=== PATIENT | female | born 1955 | race Caucasian/White ===

== ENCOUNTER 2016-09-27 10:25 | Outpatient (CLI) | payer MEDICARE, OTHER ==
[2016-09-27 11:55] LABS: #Eosinphils 0.1 thou/uL (0.0-0.7); #Lymphocytes 1.3 thou/uL (1.20-3.40); #Monocytes 0.5 thou/uL (0.11-0.59); #Neutrophils 3.7 thou/uL (1.40-6.50); %Basophils 0.7 % (0.0-1.0); %Eosinophils 2.4 % (0.0-10.0); %Lymphocytes 22.6 % (21.0-51.0); %Neutrophils 66.4 % (42.0-75.0); Hemoglobin 13.8 g/dL (12.0-16.0); Mean Corpuscular HGB CONC 31.6 g/dL (32.0-36.0); Mean Corpuscular Hemoglobin 29.4 pg (27.0-31.0); Mean Corpuscular Volume 92.8 fl (81.0-99.0); Platelet Count 227 thou/uL (130-400); RBC Distribution Width 12.8 % (11.5-14.5); White Blood Cell (WBC) Count 5.6 thou/uL (4.8-10.8)
[2016-09-27 12:03] LABS: ALT (SGPT) 7 U/L (8-55); AST (SGOT) 12 U/L (5-34); Albumin 3.6 g/dL (3.4-4.8); Alkaline Phosphatase 58 U/L (40-150); Anion Gap 15 mmol/L (10-20); BUN (Urea Nitrogen) 10 mg/dL (9.8-20.1); Bilirubin, Total 0.6 mg/dL (0.2-1.2); Calc. Creatinine Clearance 0 mL/min (70-130); Calcium 8.9 mg/dL (7.8-10.44); Carbon Dioxide 33 mmol/L (23-31); Cardiac Risk 2.4 (Less than 4.5); Chloride 102 mmol/L (98-107); Cholesterol 104 mg/dl (< 200 Desired); Estimated GFR-MDRD Greater than 90; Globulin 2.7 g/dL (2.4-3.5); Glucose 84 mg/dL (80-115); HDL Cholesterol 44 mg/dL (>60 Neg Risk); LDL Cholesterol, Calculated 48 mg/dL; Potassium 4.5 mmol/L (3.5-5.1); Protein, Total 6.3 g/dL (6.0-8.3); Sodium 145 mmol/L (136-145); Triglycerides 62 mg/dL (Less than 150)
== END 2016-09-27 10:26 | disposition home or self-care (01) ==
LOC: HPCALD 10:25
PROVIDERS: ATTEND Family Medicine
DX: E78.5 Hyperlipidemia, unspecified (principal); I10 Essential (primary) hypertension
CPT/HCPCS: 36415; 80053; 80061; 85025

== ENCOUNTER 2016-11-23 13:07 | Outpatient (CLI) | payer MEDICARE ==
--- NOTE | 2016-11-23 19:39 | RAD ---
RIGHT LEG TWO VIEWS: 11/23/16 No fracture or periosteal reaction was seen. The tibia and fibula appear intact. A small calcaneal s pur was noted. IMPRESSION: No acute finding. POS: HOME
--- NOTE | 2016-11-23 19:41 | RAD ---
RIGHT HIP TWO VIEWS: 11/23/16 No fracture, dislocation, or joint space narrowing was seen. The articular surfaces are smooth. The adjacent pubic ring appears intact. IMPRESSION: No acute finding. POS: HOME
--- NOTE | 2016-11-23 19:55 | RAD ---
RIGHT KNEE FOUR VIEWS 11/23/16 No fracture, dislocation, or joint effusion was seen. The joint space is normal in width. There is s ome bony spurring from the distal femur anteriorly that is probably of little consequence. IMPRESSION: No acute finding. POS: HOME
== END 2016-11-23 13:08 | disposition home or self-care (01) ==
LOC: BURRAD 13:07
PROVIDERS: ATTEND Family Medicine
DX: M79.604 Pain in right leg (principal)

== ENCOUNTER 2017-03-08 14:00 | Outpatient (CLI) | payer MEDICARE ==
--- NOTE | 2017-03-08 20:46 | CT ---
CT OF THE LUMBAR SPINE: Date: 03-08-17 Comparison: 08-01-12 done at [facility]. FINDINGS: The patient has significant lumbar scoliosis, convex right, to about the same degree as before. This does distort the images somewhat and lower the sensitivity of the study. The patient does have a neur al stimulator in place today. T11-12: No acute findings. T12-L1: No acute findings. L1-2: No acute findings. L2-3: Degenerative disc with a mild concentric bulge of the disc. No substantial stenosis. L3-4: Significant central canal stenosis due to a combination of a diffusely bulging disc and facet h ypertrophy. There is mild ligamentous hypertrophy. There is some disc quality material in the left ne ural foramen as before, presumed to be disc protrusion. L4-5: Generalized disc protrusion or disc bulging with probably some lateral bulging disc on the left . L5-S1: No focal disc herniation is seen. The disc is degenerated. There is grade I anterolisthesis of L4 on L5 as before. The L4-5 disc space appears to be fusion furt her in the interval. I do not see any acute vertebral fractures. IMPRESSION: 1. Severe degenerative disc disease throughout as described above. 2. Central canal stenosis as described above. 3. Evidence of disc protrusion on the left at L2-3 and L3-4. 4. Overall, the changes since 2012 seem to be relatively slight. POS: HOME
== END 2017-03-08 14:01 | disposition home or self-care (01) ==
LOC: BURCT 14:00
PROVIDERS: ATTEND Family Medicine
DX: M48.061 Spinal stenosis, lumbar region without neurogenic claudication (principal); M51.26 Other intervertebral disc displacement, lumbar region; M51.36 Other intervertebral disc degeneration, lumbar region
CPT/HCPCS: 72131

== ENCOUNTER 2018-07-06 14:59 | Emergency (ER) | payer MEDICARE ==
[2018-07-06 15:33] LABS: Hemoglobin 10.8 g/dL (12.0-16.0); Mean Corpuscular HGB CONC 29.2 g/dL (32.0-36.0); Mean Corpuscular Hemoglobin 29.9 pg (27.0-31.0); Mean Platelet Volume 7.2 fL (7.4-10.4); Platelet Count 216 thou/uL (130-400); RBC Distribution Width 13.9 % (11.5-14.5); Red Blood Cell (RBC) Count 3.61 mill/uL (4.20-5.40); White Blood Cell (WBC) Count 7.7 thou/uL (4.8-10.8)
[2018-07-06 15:43] LABS: PTT 25.1 SEC (22.9-36.1); Prothrombin Time 13.1 SEC (12.0-14.7)
[2018-07-06 15:46] LABS: Clarity Cloudy (Clear)
[2018-07-06 15:46] LABS: #Basophils 0.1 thou/uL (0.0-0.2); #Eosinphils 0.1 thou/uL (0.0-0.7); #Monocytes 0.7 thou/uL (0.11-0.59); #Neutrophils 5.8 thou/uL (1.40-6.50); %Basophils 1.1 % (0.0-1.0); %Eosinophils 1.5 % (0.0-10.0); %Lymphocytes 13.4 % (21.0-51.0); %Monocytes 8.5 % (0.0-10.0); %Neutrophils 75.5 % (42.0-75.0); Hypochromia SLIGHT = 6-15 cells (100X) (0-5/hpf); MDiff Complete? YES
[2018-07-06 15:47] LABS: Bilirubin Negative (Negative); Blood, Urine Small (Negative); Glucose, Urine (Dipstick) Negative (Negative); Leukocyte Negative (Negative); Nitrite Negative (Negative); Protein, Urine (Dipstick) Negative (Neg-Trace)
[2018-07-06 15:48] LABS: ALT (SGPT) 15 U/L (8-55); AST (SGOT) 20 U/L (5-34); Albumin 3.1 g/dL (3.4-4.8); Alkaline Phosphatase 71 U/L (40-150); Anion Gap 12 mmol/L (10-20); BUN (Urea Nitrogen) 9 mg/dL (9.8-20.1); Bilirubin, Total 0.7 mg/dL (0.2-1.2); Calc. Creatinine Clearance 0 mL/min (70-130); Calcium 8.2 mg/dL (7.8-10.44); Estimated GFR-MDRD Greater than 90; Globulin 2.8 g/dL (2.4-3.5); Glucose 74 mg/dL (80-115); Protein, Total 5.9 g/dL (6.0-8.3)
[2018-07-06 15:52] LABS: Bacteria/HPF 4+ HPF (None Seen); RBC/HPF 0-3 HPF (0-3); Squamous Epithelial 0-3 HPF (0-3); WBC/HPF 0-3 HPF (0-3)
[2018-07-06 15:54] LABS: Carbon Dioxide 43 mmol/L (23-31); Chloride 95 mmol/L (98-107); Potassium 3.4 mmol/L (3.5-5.1); Sodium 147 mmol/L (136-145)
--- NOTE | 2018-07-06 16:32 | CT ---
CT OF THE BRAIN WITHOUT CONTRAST 07/06/18 Comparison is made with the prior study of 11/20/15. The ventricles are normal in size and show no chris ft. No intracranial bleeding or extra-axial hematoma was seen. There is no sign of acute stroke, mass , or edema. An old lacunar infarct or perhaps a prominent Virchow space is seen in the right basal ga nglia region and has not changed. There is a soft tissue hematoma over the right frontal area. The underlying bone appears intact. The re was no evidence of skull fracture. The paranasal sinuses and mastoid air cells that were visualize d where clear. IMPRESSION: No acute intracranial findings. POS: HOME
--- NOTE | 2018-07-06 16:34 | CT ---
CT OF THE FACIAL BONES 07/06/[address] of the face was done following trauma. Axial slices were acquired, then coronal and sagitta l reconstructions were done. There is a soft tissue hematoma over the right frontal region of the scalp. The underlying bone all a ppears intact. No facial fractures were seen. The orbital rims, zygomatic arches, nasal bones, and ma ndible appear normal. The retro-orbital areas were unremarkable in appearance. Each globe appeared n ormal. IMPRESSION: Soft tissue swelling but no acute bony findings. POS: HOME
--- NOTE | 2018-07-06 16:36 | CT ---
CT OF THE CERVICAL SPINE 07/06/[address] of the cervical spine was performed for evaluation following trauma. Axial slices were acqu ired followed by coronal and sagittal reconstructions. No fracture, dislocation, or acute bony change was seen at any of the cervical levels. No major degre e of foraminal or central canal stenosis was evident. The soft tissues are normal in thickness. The C 1 to dens distance is normal. The surrounding soft tissues on each side of the neck were unremarkable . IMPRESSION: No acute bony finding. POS: HOME
--- NOTE | 2018-07-06 16:38 | RAD ---
PORTABLE CHEST 07/06/18 Comparison is made with a 11/13/15 study. This portable film at 1604 shows mild cardiomegaly that is similar to the prior study. The prominence of mediastinal width appears no different and is unremarkable given AP projection and body habitus. The trachea deviates slightly towards the right as it crosses the aorta, not really much different t clark before. The lungs are clear. No infiltrates or effusions were seen. Bony detail would be very poo r on this study regarding any potential rib fractures. IMPRESSION: Cardiomegaly but no acute findings. POS: HOME
== END 2018-07-06 16:46 | disposition home or self-care (01) ==
LOC: BURERS 14:59
DX: S00.83XA Contusion of other part of head, initial encounter (principal); R82.71 Bacteriuria; B37.2 Candidiasis of skin and nail; I10 Essential (primary) hypertension; F17.210 Nicotine dependence, cigarettes, uncomplicated; W06.XXXA Fall from bed, initial encounter
CPT/HCPCS: 51701; 70450; 70486; 71045; 72125; 80053; 81003; 81015; 84484; 85025; 85610; 85730; 87077; 87086; 87186; 93005; 94760; A4353

== ENCOUNTER 2020-07-21 10:17 | Emergency (ER) | payer MEDICARE ==
[2020-07-21 10:48] LABS: ALT (SGPT) 21 U/L (8-55); AST (SGOT) 76 U/L (5-34); Alkaline Phosphatase 105 U/L (40-110); Anion Gap 21 mmol/L (10-20); BUN (Urea Nitrogen) 26 mg/dL (9.8-20.1); Bilirubin, Total 1.4 mg/dL (0.2-1.2); CK (CPK) 2427 U/L (29-168); Calc. Creatinine Clearance 0 mL/min (70-130); Calcium 8.6 mg/dL (7.8-10.44); Carbon Dioxide 28 mmol/L (23-31); Chloride 92 mmol/L (98-107); Globulin 3.1 g/dL (2.4-3.5); Protein, Total 6.1 g/dL (5.8-8.1); Sodium 138 mmol/L (136-145)
[2020-07-21 10:51] LABS: Anisocytosis SLIGHT = 6-15 cells (100X) (0-5/hpf); Band 24 % (5-11); Hemoglobin 10.5 g/dL (12.0-16.0); Lymphocytes 5 % (21-51); MDiff Complete? YES; Mean Corpuscular HGB CONC 30.4 g/dL (32.0-36.0); Mean Corpuscular Hemoglobin 27.5 pg (27.0-31.0); Mean Corpuscular Volume 90.3 fL (78.0-98.0); Metamyelocyte 3 % (0-0); Monocytes 4 % (0-10); Neutrophil 64 % (42-75); Platelet Count 286 thou/uL (130-400); Poikilocytosis SLIGHT = 6-15 cells (100X) (0-5/hpf); RBC Distribution Width 17.6 % (11.5-14.5); Red Blood Cell (RBC) Count 3.81 mill/uL (4.20-5.40); Tear Drops SLIGHT = 2-5 cells (100X) (0-1/hpf); Toxic Granulation SLIGHT; Vacuoles SLIGHT; White Blood Cell (WBC) Count 12.8 thou/uL (4.8-10.8)
[2020-07-21 11:07] LABS: CKMB 1.8 ng/mL (0-6.6)
[2020-07-21 11:19] LABS: Glucose 52 mg/dL (80-115); Lipase Less than 4 U/L (8-78); Potassium 2.8 mmol/L (3.5-5.1)
[2020-07-21 11:19] LABS: Bilirubin Moderate (Negative); Blood, Urine Large (Negative); Clarity Clear (Clear); Glucose, Urine (Dipstick) Negative (Negative); Ketone, Urine 15 mg/dL (Negative); Leukocyte Large (Negative); Nitrite Negative (Negative); Protein, Urine (Dipstick) 100 mg/dL (Neg-Trace); Specific Gravity, Urine 1.015 (1.005-1.030)
[2020-07-21 11:24] LABS: pH, Urine Greater/Equal 9.0 (5.0-9.0)
[2020-07-21 11:25] LABS: Bacteria/HPF 3+ HPF (None Seen); Other Microscopic Description C&S SET UP; RBC/HPF 0-3 HPF (0-3); Squamous Epithelial 0-3 HPF (0-3)
[2020-07-21] MEDS ORDERED: Sodium Chloride 0.9% 100 ML ONE (11:25)
[2020-07-21] MEDS ORDERED: Cefepime 2 GM VIAL ONE (11:25)
[2020-07-21] MEDS ORDERED: Dextrose 50% Abboject 50 ML SYRINGE ONE (11:27)
[2020-07-21] MEDS ORDERED: Aspirin 325 MG TAB ONE (11:27)
[2020-07-21] MEDS ORDERED: Ondansetron PF 4 MG/2 ML Vial ONE (11:48)
[2020-07-21 12:36] LABS: SARS-CoV-2 NAA Rapid Test Not Detected (NotDetected)
== END 2020-07-21 13:00 | disposition short-term general hospital (02) ==
LOC: BURERS 10:17
DX: A41.9 Sepsis, unspecified organism (principal); I21.4 Non-ST elevation (NSTEMI) myocardial infarction; N39.0 Urinary tract infection, site not specified; E16.2 Hypoglycemia, unspecified; E87.6 Hypokalemia; M62.82 Rhabdomyolysis; J45.909 Unspecified asthma, uncomplicated; I10 Essential (primary) hypertension; E78.5 Hyperlipidemia, unspecified; Z87.891 Personal history of nicotine dependence; Z20.822 Contact with and (suspected) exposure to COVID-19
CPT/HCPCS: 0240U; 70450; 71045; 80053; 82550; 82553; 83605; 83690; 84484; 85025; 87040; 87077; 87086; 87149 ×2; 93005; 94760; 36415; 51702; 81003; 81015; 87186; 96365; 96375; J0692; J2405; J3490

== ENCOUNTER 2020-07-31 14:21 | Inpatient (IN) | payer MEDICARE ==
[2020-07-31] MEDS ORDERED: Polyethylene Glycol 3350 17 GM Packet PO PRN (20:58)
[2020-07-31] MEDS: Atorvastatin Calcium 10 MG TAB PO SCH (21:34)
[2020-07-31] MEDS: Metoprolol Tartrate 25 MG TAB PO SCH (21:34)
[2020-07-31] MEDS: ALPRAZolam 0.5 MG TAB PO SCH (21:34)
[2020-07-31] MEDS: Acetaminophen 325 MG TAB PO PRN (21:37)
[2020-08-01] MEDS: Acetaminophen 325 MG TAB PO PRN ×3 (08:37→21:13)
[2020-08-01] MEDS: ALPRAZolam 0.5 MG TAB PO SCH ×2 (08:37→20:09)
[2020-08-01] MEDS: Aspirin 325 mg Enteric Coated Tablet PO SCH (08:38)
[2020-08-01] MEDS: Escitalopram Oxalate 20 mg Tablet PO SCH (08:38)
[2020-08-01] MEDS: Saccharomyces boulardii 250 MG CAP PO SCH (08:38)
[2020-08-01] MEDS: Metoprolol Tartrate 25 MG TAB PO SCH ×2 (08:39→21:19)
[2020-08-01] MEDS: Cyanocobalamin (Vitamin B-12) 1,000 MCG TAB PO SCH (08:39)
[2020-08-01] MEDS: Ferrous Sulfate 325 MG TAB PO SCH (08:39)
[2020-08-01] MEDS: Folic Acid 1 MG TAB PO SCH (08:45)
[2020-08-01] MEDS ORDERED: Senokot S 8.6-50 MG TAB PO PRN (11:07)
[2020-08-01] MEDS ORDERED: Bisacodyl 5 MG TAB PO PRN (11:07)
[2020-08-01] MEDS: tiZANidine HCl 4 MG TAB PO PRN (13:10)
[2020-08-01] MEDS ORDERED: Furosemide 20 MG/2 ML VIAL SLOW IVP SCH (17:45)
[2020-08-01] MEDS ORDERED: Furosemide 20 MG TAB PO SCH (18:45)
[2020-08-01] MEDS: Atorvastatin Calcium 10 MG TAB PO SCH (21:19)
[2020-08-02] MEDS: Acetaminophen 325 MG TAB PO PRN ×3 (05:08→21:15)
[2020-08-02 05:40] LABS: #Basophils 0.1 thou/uL (0.0-0.2); #Lymphocytes 0.9 thou/uL (1.20-3.40); #Monocytes 0.8 thou/uL (0.11-0.59); #Neutrophils 8.4 thou/uL (1.40-6.50); %Basophils 0.7 % (0.0-1.0); %Eosinophils 0.1 % (0.0-10.0); %Lymphocytes 8.6 % (21.0-51.0); %Monocytes 7.7 % (0.0-10.0); %Neutrophils 82.9 % (42.0-75.0); Hemoglobin 8.4 g/dL (12.0-16.0); Mean Corpuscular HGB CONC 31.3 g/dL (32.0-36.0); Mean Corpuscular Hemoglobin 27.8 pg (27.0-31.0); Mean Platelet Volume 6.8 fL (7.4-10.4); Platelet Count 408 thou/uL (130-400); RBC Distribution Width 17.4 % (11.5-14.5); Red Blood Cell (RBC) Count 3.03 mill/uL (4.20-5.40); White Blood Cell (WBC) Count 10.1 thou/uL (4.8-10.8)
[2020-08-02 05:56] LABS: ALT (SGPT) 34 U/L (8-55); AST (SGOT) 36 U/L (5-34); Albumin 2.3 g/dL (3.4-4.8); Alkaline Phosphatase 80 U/L (40-110); Anion Gap 17 mmol/L (10-20); BUN (Urea Nitrogen) 8 mg/dL (9.8-20.1); Bilirubin, Total 0.4 mg/dL (0.2-1.2); Calc. Creatinine Clearance 195 mL/min (70-130); Calcium 8.2 mg/dL (7.8-10.44); Carbon Dioxide 39 mmol/L (23-31); Globulin 3.5 g/dL (2.4-3.5); Glucose 88 mg/dL (80-115); Protein, Total 5.8 g/dL (5.8-8.1)
[2020-08-02 06:00] LABS: Chloride 93 mmol/L (98-107); Potassium 3.7 mmol/L (3.5-5.1); Sodium 145 mmol/L (136-145)
[2020-08-02] MEDS: Nystatin Powder 15 GM BOT TOP PRN ×2 (06:02→21:17)
[2020-08-02] MEDS: Enoxaparin Sodium 40 MG/0.4 ML SYRINGE SC SCH (08:28)
[2020-08-02] MEDS: ALPRAZolam 0.5 MG TAB PO SCH ×2 (08:29→21:16)
[2020-08-02] MEDS: Cyanocobalamin (Vitamin B-12) 1,000 MCG TAB PO SCH (08:29)
[2020-08-02] MEDS: Ferrous Sulfate 325 MG TAB PO SCH (08:29)
[2020-08-02] MEDS: Saccharomyces boulardii 250 MG CAP PO SCH (08:29)
[2020-08-02] MEDS: Aspirin 325 mg Enteric Coated Tablet PO SCH (08:29)
[2020-08-02] MEDS: Metoprolol Tartrate 25 MG TAB PO SCH ×2 (08:29→21:16)
[2020-08-02] MEDS: Escitalopram Oxalate 20 mg Tablet PO SCH (08:29)
[2020-08-02] MEDS: Folic Acid 1 MG TAB PO SCH (08:29)
[2020-08-02] MEDS: tiZANidine HCl 4 MG TAB PO PRN (11:44)
[2020-08-02] MEDS: Atorvastatin Calcium 10 MG TAB PO SCH (21:16)
[2020-08-03] MEDS: Saccharomyces boulardii 250 MG CAP PO SCH (08:18)
[2020-08-03] MEDS: Enoxaparin Sodium 40 MG/0.4 ML SYRINGE SC SCH (08:18)
[2020-08-03] MEDS: Folic Acid 1 MG TAB PO SCH (08:19)
[2020-08-03] MEDS: Ferrous Sulfate 325 MG TAB PO SCH (08:19)
[2020-08-03] MEDS: Escitalopram Oxalate 20 mg Tablet PO SCH (08:19)
[2020-08-03] MEDS: Acetaminophen 325 MG TAB PO PRN ×2 (08:19→15:02)
[2020-08-03] MEDS: Metoprolol Tartrate 25 MG TAB PO SCH ×2 (08:19→20:26)
[2020-08-03] MEDS: ALPRAZolam 0.5 MG TAB PO SCH ×2 (08:19→20:25)
[2020-08-03] MEDS: Cyanocobalamin (Vitamin B-12) 1,000 MCG TAB PO SCH (08:19)
[2020-08-03] MEDS: Aspirin 325 mg Enteric Coated Tablet PO SCH (08:19)
[2020-08-03] MEDS: Atorvastatin Calcium 10 MG TAB PO SCH (20:25)
[2020-08-03] MEDS: Benzonatate 100 MG CAP PO PRN (20:26)
[2020-08-04] MEDS: Acetaminophen 325 MG TAB PO PRN ×4 (03:01→19:49)
[2020-08-04] MEDS: tiZANidine HCl 4 MG TAB PO PRN (03:02)
[2020-08-04] MEDS: Escitalopram Oxalate 20 mg Tablet PO SCH (08:33)
[2020-08-04] MEDS: Cyanocobalamin (Vitamin B-12) 1,000 MCG TAB PO SCH (08:33)
[2020-08-04] MEDS: Enoxaparin Sodium 40 MG/0.4 ML SYRINGE SC SCH (08:33)
[2020-08-04] MEDS: ALPRAZolam 0.5 MG TAB PO SCH ×2 (08:34→21:16)
[2020-08-04] MEDS: Folic Acid 1 MG TAB PO SCH (08:34)
[2020-08-04] MEDS: Metoprolol Tartrate 25 MG TAB PO SCH ×2 (08:34→21:16)
[2020-08-04] MEDS: Ferrous Sulfate 325 MG TAB PO SCH (08:34)
[2020-08-04] MEDS: Saccharomyces boulardii 250 MG CAP PO SCH (08:34)
[2020-08-04] MEDS: Aspirin 325 mg Enteric Coated Tablet PO SCH (08:34)
[2020-08-04] MEDS: Nystatin Powder 15 GM BOT TOP PRN ×2 (08:43→21:17)
[2020-08-04] MEDS: Atorvastatin Calcium 10 MG TAB PO SCH (21:16)
[2020-08-05 05:56] LABS: Hemoglobin 7.7 g/dL (12.0-16.0); Platelet Count 293 thou/uL (130-400)
[2020-08-05 05:59] LABS: Calc. Creatinine Clearance 174 mL/min (70-130)
[2020-08-05] MEDS: Ferrous Sulfate 325 MG TAB PO SCH (09:27)
[2020-08-05] MEDS: Aspirin 325 mg Enteric Coated Tablet PO SCH (09:27)
[2020-08-05] MEDS: Cyanocobalamin (Vitamin B-12) 1,000 MCG TAB PO SCH (09:27)
[2020-08-05] MEDS: Escitalopram Oxalate 20 mg Tablet PO SCH (09:28)
[2020-08-05] MEDS: Metoprolol Tartrate 25 MG TAB PO SCH ×2 (09:28→21:51)
[2020-08-05] MEDS: Saccharomyces boulardii 250 MG CAP PO SCH (09:28)
[2020-08-05] MEDS: tiZANidine HCl 4 MG TAB PO PRN (09:28)
[2020-08-05] MEDS: ALPRAZolam 0.5 MG TAB PO SCH ×2 (09:28→21:51)
[2020-08-05] MEDS: Folic Acid 1 MG TAB PO SCH (09:28)
[2020-08-05] MEDS: Enoxaparin Sodium 40 MG/0.4 ML SYRINGE SC SCH (09:29)
[2020-08-05] MEDS: Acetaminophen 325 MG TAB PO PRN ×2 (13:38→20:15)
[2020-08-05] MEDS: Atorvastatin Calcium 10 MG TAB PO SCH (21:51)
[2020-08-05] MEDS: Nystatin Powder 15 GM BOT TOP PRN (21:52)
[2020-08-06] MEDS: Acetaminophen 325 MG TAB PO PRN ×2 (06:46→18:12)
[2020-08-06] MEDS: Enoxaparin Sodium 40 MG/0.4 ML SYRINGE SC SCH (08:38)
[2020-08-06] MEDS: Escitalopram Oxalate 20 mg Tablet PO SCH (08:39)
[2020-08-06] MEDS: Cyanocobalamin (Vitamin B-12) 1,000 MCG TAB PO SCH (08:39)
[2020-08-06] MEDS: Saccharomyces boulardii 250 MG CAP PO SCH (08:40)
[2020-08-06] MEDS: Metoprolol Tartrate 25 MG TAB PO SCH ×2 (08:40→21:04)
[2020-08-06] MEDS: Aspirin 325 mg Enteric Coated Tablet PO SCH (08:40)
[2020-08-06] MEDS: Ferrous Sulfate 325 MG TAB PO SCH (08:40)
[2020-08-06] MEDS: Folic Acid 1 MG TAB PO SCH (08:40)
[2020-08-06] MEDS: ALPRAZolam 0.5 MG TAB PO SCH ×2 (08:41→21:04)
[2020-08-06] MEDS: Atorvastatin Calcium 10 MG TAB PO SCH (21:04)
[2020-08-06] MEDS: Nystatin Powder 15 GM BOT TOP PRN (21:04)
[2020-08-07] MEDS: Acetaminophen 325 MG TAB PO PRN ×3 (04:54→20:59)
[2020-08-07] MEDS: Aspirin 325 mg Enteric Coated Tablet PO SCH (08:43)
[2020-08-07] MEDS: Ferrous Sulfate 325 MG TAB PO SCH (08:43)
[2020-08-07] MEDS: Cyanocobalamin (Vitamin B-12) 1,000 MCG TAB PO SCH (08:44)
[2020-08-07] MEDS: ALPRAZolam 0.5 MG TAB PO SCH ×2 (08:44→20:17)
[2020-08-07] MEDS: Metoprolol Tartrate 25 MG TAB PO SCH ×2 (08:44→20:17)
[2020-08-07] MEDS: Folic Acid 1 MG TAB PO SCH (08:44)
[2020-08-07] MEDS: Saccharomyces boulardii 250 MG CAP PO SCH (08:44)
[2020-08-07] MEDS: Escitalopram Oxalate 20 mg Tablet PO SCH (08:44)
[2020-08-07] MEDS: Loratadine 10 MG TAB PO PRN (08:44)
[2020-08-07] MEDS: Enoxaparin Sodium 40 MG/0.4 ML SYRINGE SC SCH (08:45)
[2020-08-07 15:53] VITALS: BMI 40.2
[2020-08-07] MEDS: Atorvastatin Calcium 10 MG TAB PO SCH (20:17)
[2020-08-08] MEDS: Acetaminophen 325 MG TAB PO PRN ×4 (05:10→19:35)
[2020-08-08 05:26] LABS: Hemoglobin 8.9 g/dL (12.0-16.0); Platelet Count 495 thou/uL (130-400)
[2020-08-08 05:34] LABS: Calc. Creatinine Clearance 150 mL/min (70-130)
[2020-08-08] MEDS: Nystatin Powder 15 GM BOT TOP PRN (05:58)
[2020-08-08] MEDS: Enoxaparin Sodium 40 MG/0.4 ML SYRINGE SC SCH (09:13)
[2020-08-08] MEDS: Cyanocobalamin (Vitamin B-12) 1,000 MCG TAB PO SCH (09:14)
[2020-08-08] MEDS: ALPRAZolam 0.5 MG TAB PO SCH ×2 (09:14→20:23)
[2020-08-08] MEDS: Aspirin 325 mg Enteric Coated Tablet PO SCH (09:14)
[2020-08-08] MEDS: Escitalopram Oxalate 20 mg Tablet PO SCH (09:14)
[2020-08-08] MEDS: Ferrous Sulfate 325 MG TAB PO SCH (09:14)
[2020-08-08] MEDS: Saccharomyces boulardii 250 MG CAP PO SCH (09:14)
[2020-08-08] MEDS: Folic Acid 1 MG TAB PO SCH (09:14)
[2020-08-08] MEDS: Metoprolol Tartrate 25 MG TAB PO SCH ×2 (09:14→20:23)
[2020-08-08] MEDS: Loratadine 10 MG TAB PO PRN (09:15)
[2020-08-08] MEDS: Artificial Tear Sol 15 ML BOT EA EYE PRN (09:37)
[2020-08-08] MEDS: Atorvastatin Calcium 10 MG TAB PO SCH (20:23)
[2020-08-08] MEDS: Benzonatate 100 MG CAP PO PRN (20:24)
[2020-08-08] MEDS: tiZANidine HCl 4 MG TAB PO PRN (21:32)
[2020-08-09] MEDS: Aspirin 325 mg Enteric Coated Tablet PO SCH (08:23)
[2020-08-09] MEDS: Escitalopram Oxalate 20 mg Tablet PO SCH (08:23)
[2020-08-09] MEDS: Loratadine 10 MG TAB PO PRN (08:23)
[2020-08-09] MEDS: Enoxaparin Sodium 40 MG/0.4 ML SYRINGE SC SCH (08:23)
[2020-08-09] MEDS: Saccharomyces boulardii 250 MG CAP PO SCH (08:23)
[2020-08-09] MEDS: Ferrous Sulfate 325 MG TAB PO SCH (08:24)
[2020-08-09] MEDS: ALPRAZolam 0.5 MG TAB PO SCH ×2 (08:24→20:21)
[2020-08-09] MEDS: Folic Acid 1 MG TAB PO SCH (08:24)
[2020-08-09] MEDS: Metoprolol Tartrate 25 MG TAB PO SCH ×2 (08:25→20:21)
[2020-08-09] MEDS: Cyanocobalamin (Vitamin B-12) 1,000 MCG TAB PO SCH (08:25)
[2020-08-09] MEDS: Artificial Tear Sol 15 ML BOT EA EYE PRN (08:25)
[2020-08-09] MEDS: Acetaminophen 325 MG TAB PO PRN ×2 (11:25→20:20)
[2020-08-09] MEDS: Atorvastatin Calcium 10 MG TAB PO SCH (20:20)
[2020-08-10] MEDS: Acetaminophen 325 MG TAB PO PRN ×3 (04:34→20:44)
[2020-08-10] MEDS: Enoxaparin Sodium 40 MG/0.4 ML SYRINGE SC SCH (11:25)
[2020-08-10] MEDS: Saccharomyces boulardii 250 MG CAP PO SCH (11:28)
[2020-08-10] MEDS: ALPRAZolam 0.5 MG TAB PO SCH ×2 (11:28→20:42)
[2020-08-10] MEDS: Metoprolol Tartrate 25 MG TAB PO SCH ×2 (11:29→20:42)
[2020-08-10] MEDS: Aspirin 325 mg Enteric Coated Tablet PO SCH (11:30)
[2020-08-10] MEDS: Cyanocobalamin (Vitamin B-12) 1,000 MCG TAB PO SCH (11:30)
[2020-08-10] MEDS: Ferrous Sulfate 325 MG TAB PO SCH (11:31)
[2020-08-10] MEDS: Escitalopram Oxalate 20 mg Tablet PO SCH (11:31)
[2020-08-10] MEDS: Folic Acid 1 MG TAB PO SCH (11:31)
[2020-08-10] MEDS: Atorvastatin Calcium 10 MG TAB PO SCH (20:42)
[2020-08-11] MEDS: Acetaminophen 325 MG TAB PO PRN ×3 (02:48→20:46)
[2020-08-11 05:07] LABS: Hemoglobin 8.2 g/dL (12.0-16.0); Platelet Count 363 thou/uL (130-400)
[2020-08-11 05:18] LABS: Calc. Creatinine Clearance 143 mL/min (70-130)
[2020-08-11] MEDS: Ferrous Sulfate 325 MG TAB PO SCH (08:27)
[2020-08-11] MEDS: Escitalopram Oxalate 20 mg Tablet PO SCH (08:27)
[2020-08-11] MEDS: Cyanocobalamin (Vitamin B-12) 1,000 MCG TAB PO SCH (08:27)
[2020-08-11] MEDS: Enoxaparin Sodium 40 MG/0.4 ML SYRINGE SC SCH (08:27)
[2020-08-11] MEDS: Saccharomyces boulardii 250 MG CAP PO SCH (08:27)
[2020-08-11] MEDS: Aspirin 325 mg Enteric Coated Tablet PO SCH (08:27)
[2020-08-11] MEDS: Folic Acid 1 MG TAB PO SCH (08:28)
[2020-08-11] MEDS: ALPRAZolam 0.5 MG TAB PO SCH ×2 (08:28→20:28)
[2020-08-11] MEDS: Metoprolol Tartrate 25 MG TAB PO SCH ×2 (08:28→20:28)
[2020-08-11] MEDS: Atorvastatin Calcium 10 MG TAB PO SCH (20:26)
[2020-08-12] MEDS: Acetaminophen 325 MG TAB PO PRN ×3 (06:26→21:10)
[2020-08-12] MEDS: Enoxaparin Sodium 40 MG/0.4 ML SYRINGE SC SCH (10:47)
[2020-08-12] MEDS: Aspirin 325 mg Enteric Coated Tablet PO SCH (10:48)
[2020-08-12] MEDS: ALPRAZolam 0.5 MG TAB PO SCH ×2 (10:48→21:10)
[2020-08-12] MEDS: Metoprolol Tartrate 25 MG TAB PO SCH ×2 (10:49→21:12)
[2020-08-12] MEDS: Cyanocobalamin (Vitamin B-12) 1,000 MCG TAB PO SCH (10:49)
[2020-08-12] MEDS: Folic Acid 1 MG TAB PO SCH (10:50)
[2020-08-12] MEDS: Escitalopram Oxalate 20 mg Tablet PO SCH (10:50)
[2020-08-12] MEDS: Ferrous Sulfate 325 MG TAB PO SCH (10:50)
[2020-08-12] MEDS: Saccharomyces boulardii 250 MG CAP PO SCH (10:50)
[2020-08-12] MEDS: Nystatin Powder 15 GM BOT TOP PRN (14:34)
[2020-08-12] MEDS: Atorvastatin Calcium 10 MG TAB PO SCH (21:11)
[2020-08-13] MEDS: Enoxaparin Sodium 40 MG/0.4 ML SYRINGE SC SCH (08:20)
[2020-08-13] MEDS: Aspirin 325 mg Enteric Coated Tablet PO SCH (08:21)
[2020-08-13] MEDS: Metoprolol Tartrate 25 MG TAB PO SCH ×2 (08:21→20:37)
[2020-08-13] MEDS: Acetaminophen 325 MG TAB PO PRN ×2 (08:21→23:05)
[2020-08-13] MEDS: Cyanocobalamin (Vitamin B-12) 1,000 MCG TAB PO SCH (08:21)
[2020-08-13] MEDS: Folic Acid 1 MG TAB PO SCH (08:23)
[2020-08-13] MEDS: Escitalopram Oxalate 20 mg Tablet PO SCH (08:23)
[2020-08-13] MEDS: Ferrous Sulfate 325 MG TAB PO SCH (08:23)
[2020-08-13] MEDS: Saccharomyces boulardii 250 MG CAP PO SCH (08:23)
[2020-08-13] MEDS: ALPRAZolam 0.5 MG TAB PO SCH ×2 (08:23→20:38)
[2020-08-13] MEDS: Atorvastatin Calcium 10 MG TAB PO SCH (20:37)
[2020-08-13] MEDS: tiZANidine HCl 4 MG TAB PO PRN (23:05)
[2020-08-14 06:01] LABS: Hemoglobin 8.8 g/dL (12.0-16.0); Platelet Count 275 thou/uL (130-400)
[2020-08-14 06:07] LABS: Calc. Creatinine Clearance 140 mL/min (70-130)
[2020-08-14] MEDS: Ferrous Sulfate 325 MG TAB PO SCH (10:30)
[2020-08-14] MEDS: Cyanocobalamin (Vitamin B-12) 1,000 MCG TAB PO SCH (10:30)
[2020-08-14] MEDS: Saccharomyces boulardii 250 MG CAP PO SCH (10:30)
[2020-08-14] MEDS ORDERED: ALPRAZolam 0.5 MG TAB PO SCH (10:30)
[2020-08-14] MEDS: Enoxaparin Sodium 40 MG/0.4 ML SYRINGE SC SCH (10:30)
[2020-08-14] MEDS: Metoprolol Tartrate 25 MG TAB PO SCH ×2 (10:30→20:59)
[2020-08-14] MEDS: Folic Acid 1 MG TAB PO SCH (10:30)
[2020-08-14] MEDS: Escitalopram Oxalate 20 mg Tablet PO SCH (10:30)
[2020-08-14] MEDS: Aspirin 325 mg Enteric Coated Tablet PO SCH (10:30)
[2020-08-14] MEDS: Ondansetron ODT 4 MG TAB PO PRN (15:43)
[2020-08-14] MEDS: ALPRAZolam 0.5 MG TAB PO SCH ×2 (15:46→20:58)
[2020-08-14] MEDS: Acetaminophen 325 MG TAB PO PRN (20:59)
[2020-08-14] MEDS: Atorvastatin Calcium 10 MG TAB PO SCH (20:59)
[2020-08-15] MEDS: Loratadine 10 MG TAB PO PRN (08:50)
[2020-08-15] MEDS: Enoxaparin Sodium 40 MG/0.4 ML SYRINGE SC SCH (08:50)
[2020-08-15] MEDS: Metoprolol Tartrate 25 MG TAB PO SCH ×2 (08:50→20:26)
[2020-08-15] MEDS: Cyanocobalamin (Vitamin B-12) 1,000 MCG TAB PO SCH (08:50)
[2020-08-15] MEDS: Aspirin 325 mg Enteric Coated Tablet PO SCH (08:58)
[2020-08-15] MEDS: Folic Acid 1 MG TAB PO SCH (08:58)
[2020-08-15] MEDS: ALPRAZolam 0.5 MG TAB PO SCH ×2 (08:59→20:27)
[2020-08-15] MEDS: Saccharomyces boulardii 250 MG CAP PO SCH (09:00)
[2020-08-15] MEDS: Ferrous Sulfate 325 MG TAB PO SCH (09:01)
[2020-08-15] MEDS: Escitalopram Oxalate 20 mg Tablet PO SCH (09:01)
[2020-08-15] MEDS: Acetaminophen 325 MG TAB PO PRN (09:56)
[2020-08-15] MEDS: Atorvastatin Calcium 10 MG TAB PO SCH (20:26)
[2020-08-15] MEDS: Nystatin Powder 15 GM BOT TOP PRN (20:27)
[2020-08-15] MEDS: Ondansetron ODT 4 MG TAB PO PRN (22:58)
[2020-08-16] MEDS: Acetaminophen 325 MG TAB PO PRN ×2 (05:04→18:13)
[2020-08-16] MEDS: Enoxaparin Sodium 40 MG/0.4 ML SYRINGE SC SCH (09:09)
[2020-08-16] MEDS: Ferrous Sulfate 325 MG TAB PO SCH (09:10)
[2020-08-16] MEDS: Aspirin 325 mg Enteric Coated Tablet PO SCH (09:10)
[2020-08-16] MEDS: Folic Acid 1 MG TAB PO SCH (09:10)
[2020-08-16] MEDS: Saccharomyces boulardii 250 MG CAP PO SCH (09:10)
[2020-08-16] MEDS: Metoprolol Tartrate 25 MG TAB PO SCH ×2 (09:10→20:41)
[2020-08-16] MEDS: Escitalopram Oxalate 20 mg Tablet PO SCH (09:10)
[2020-08-16] MEDS: Loratadine 10 MG TAB PO PRN (09:14)
[2020-08-16] MEDS: Cyanocobalamin (Vitamin B-12) 1,000 MCG TAB PO SCH (09:14)
[2020-08-16] MEDS: ALPRAZolam 0.5 MG TAB PO SCH ×2 (09:15→20:41)
[2020-08-16] MEDS: Atorvastatin Calcium 10 MG TAB PO SCH (20:41)
[2020-08-16] MEDS: Nystatin Powder 15 GM BOT TOP PRN (20:42)
[2020-08-17 06:08] LABS: Calc. Creatinine Clearance 145 mL/min (70-130)
[2020-08-17 06:10] LABS: Hemoglobin 9.3 g/dL (12.0-16.0); Platelet Count 258 thou/uL (130-400)
[2020-08-17] MEDS: Enoxaparin Sodium 40 MG/0.4 ML SYRINGE SC SCH (09:16)
[2020-08-17] MEDS: Ferrous Sulfate 325 MG TAB PO SCH (09:17)
[2020-08-17] MEDS: Cyanocobalamin (Vitamin B-12) 1,000 MCG TAB PO SCH (09:17)
[2020-08-17] MEDS: Metoprolol Tartrate 25 MG TAB PO SCH ×2 (09:17→20:30)
[2020-08-17] MEDS: Saccharomyces boulardii 250 MG CAP PO SCH (09:17)
[2020-08-17] MEDS: Acetaminophen 325 MG TAB PO PRN ×2 (09:17→20:29)
[2020-08-17] MEDS: Aspirin 325 mg Enteric Coated Tablet PO SCH (09:17)
[2020-08-17] MEDS: Escitalopram Oxalate 20 mg Tablet PO SCH (09:18)
[2020-08-17] MEDS: ALPRAZolam 0.5 MG TAB PO SCH ×2 (09:18→20:29)
[2020-08-17] MEDS: Folic Acid 1 MG TAB PO SCH (09:20)
[2020-08-17] MEDS: Nystatin Powder 15 GM BOT TOP PRN (09:24)
[2020-08-17] MEDS: Atorvastatin Calcium 10 MG TAB PO SCH (20:29)
[2020-08-18 05:06] VITALS: BP 105/71; TEMP 98.6
[2020-08-18] MEDS: Acetaminophen 325 MG TAB PO PRN (06:35)
[2020-08-18] MEDS: Metoprolol Tartrate 25 MG TAB PO SCH (08:04)
[2020-08-18] MEDS: Cyanocobalamin (Vitamin B-12) 1,000 MCG TAB PO SCH (08:04)
[2020-08-18] MEDS: Folic Acid 1 MG TAB PO SCH (08:04)
[2020-08-18] MEDS: ALPRAZolam 0.5 MG TAB PO SCH (08:04)
[2020-08-18] MEDS: Escitalopram Oxalate 20 mg Tablet PO SCH (08:05)
[2020-08-18] MEDS: Enoxaparin Sodium 40 MG/0.4 ML SYRINGE SC SCH (08:05)
[2020-08-18] MEDS: Ferrous Sulfate 325 MG TAB PO SCH (08:05)
[2020-08-18] MEDS: Aspirin 325 mg Enteric Coated Tablet PO SCH (08:05)
[2020-08-18] MEDS: Saccharomyces boulardii 250 MG CAP PO SCH (08:05)
== END 2020-08-18 14:10 | disposition home or self-care (01) | DRG 871 ==
LOC: BURMED 16:45
PROVIDERS: ADMIT Family Medicine; ATTEND Family Medicine
DX: A41.9 Sepsis, unspecified organism (principal); J96.21 Acute and chronic respiratory failure with hypoxia; N10 Acute pyelonephritis; M62.82 Rhabdomyolysis; I50.32 Chronic diastolic (congestive) heart failure; N13.30 Unspecified hydronephrosis; Z68.41 Body mass index [BMI] 40.0-44.9, adult; E78.5 Hyperlipidemia, unspecified; J44.9 Chronic obstructive pulmonary disease, unspecified; F41.9 Anxiety disorder, unspecified; F32.9 Major depressive disorder, single episode, unspecified; I11.0 Hypertensive heart disease with heart failure; D63.8 Anemia in other chronic diseases classified elsewhere; K21.9 Gastro-esophageal reflux disease without esophagitis; E66.01 Morbid (severe) obesity due to excess calories; Z99.81 Dependence on supplemental oxygen; Z79.82 Long term (current) use of aspirin; Z79.899 Other long term (current) drug therapy; Z79.2 Long term (current) use of antibiotics; Z87.891 Personal history of nicotine dependence; Z98.890 Other specified postprocedural states; I25.2 Old myocardial infarction
CPT/HCPCS: 36415; 71045; 80053; 82550; 82565; 83880; 85014; 85018; 85025; 85049; J1650; Q0162

== ENCOUNTER 2021-01-15 13:06 | Outpatient (CLI) | payer MEDICARE ==
[2021-01-15 13:18] LABS: Bilirubin Negative (Negative); Blood, Urine Large (Negative); Clarity Turbid (Clear); Glucose, Urine (Dipstick) Negative (Negative); Ketone, Urine Negative (Negative); Leukocyte Large (Negative); Nitrite Negative (Negative); Protein, Urine (Dipstick) 100 mg/dL (Neg-Trace); Urobilinogen 0.2 mg/dL (Less than 2)
[2021-01-15 13:45] LABS: Bacteria/HPF 3+ HPF (None Seen); Renal Epithelial 0-3 HPF (None Seen); Squamous Epithelial 0-3 HPF (0-3); WBC/HPF Greater Than 50 HPF (0-3); Yeast-Hyphae 1+ HPF (None Seen)
== END 2021-01-15 13:07 | disposition home or self-care (01) ==
LOC: BURLAB 13:06
PROVIDERS: ATTEND Family Medicine
DX: N39.0 Urinary tract infection, site not specified (principal); R53.1 Weakness; R30.0 Dysuria
CPT/HCPCS: 81001; 87086

== ENCOUNTER 2021-01-19 16:17 | Outpatient (CLI) | payer MEDICARE | END 2021-01-19 16:18 | disposition home or self-care (01) | LOC: BURRAD 16:17 | PROVIDERS: ATTEND Urology | DX: N13.30 Unspecified hydronephrosis (principal); Z96.0 Presence of urogenital implants | CPT/HCPCS: 74018 ==

== ENCOUNTER 2021-03-26 10:47 | Outpatient (CLI) | payer MEDICARE ==
[2021-03-26 11:14] LABS: #Basophils 0.1 thou/uL (0.0-0.2); #Lymphocytes 1.1 thou/uL (1.20-3.40); #Monocytes 0.5 thou/uL (0.11-0.59); #Neutrophils 6.4 thou/uL (1.40-6.50); %Basophils 0.8 % (0.0-1.0); %Eosinophils 0.4 % (0.0-10.0); %Lymphocytes 13.7 % (21.0-51.0); %Monocytes 5.9 % (0.0-10.0); %Neutrophils 79.2 % (42.0-75.0); Hemoglobin 10.3 g/dL (12.0-16.0); Mean Corpuscular HGB CONC 30.4 g/dL (32.0-36.0); Mean Corpuscular Hemoglobin 23.5 pg (27.0-31.0); Mean Corpuscular Volume 77.3 fL (78.0-98.0); Mean Platelet Volume 7.5 fL (7.4-10.4); Platelet Count 288 thou/uL (130-400); RBC Distribution Width 16.7 % (11.5-14.5); Red Blood Cell (RBC) Count 4.38 mill/uL (4.20-5.40); White Blood Cell (WBC) Count 8.1 thou/uL (4.8-10.8)
[2021-03-26 11:35] LABS: Basophilic Stippling SLIGHT = 1-2 cells (100X) (None Seen); MDiff Complete? YES; Microcytosis SLIGHT = 6-15 cells (100X) (0-5/hpf)
== END 2021-03-26 10:48 | disposition home or self-care (01) ==
LOC: BURLABSP 10:47
PROVIDERS: ATTEND Family Medicine
DX: J44.9 Chronic obstructive pulmonary disease, unspecified (principal); R53.1 Weakness; I11.0 Hypertensive heart disease with heart failure; D63.8 Anemia in other chronic diseases classified elsewhere; I50.9 Heart failure, unspecified
CPT/HCPCS: 85025

== ENCOUNTER 2021-06-30 14:52 | Emergency (ER) | payer MEDICARE ==
[2021-06-30 16:06] LABS: #Monocytes 0.6 thou/uL (0.11-0.59); #Neutrophils 5.5 thou/uL (1.40-6.50); %Basophils 0.6 % (0.0-1.0); %Lymphocytes 13.8 % (21.0-51.0); %Monocytes 8.2 % (0.0-10.0); %Neutrophils 77.4 % (42.0-75.0); Hemoglobin 10.3 g/dL (12.0-16.0); Mean Corpuscular HGB CONC 29.7 g/dL (32.0-36.0); Mean Corpuscular Hemoglobin 26.8 pg (27.0-31.0); Mean Corpuscular Volume 90.2 fL (78.0-98.0); Mean Platelet Volume 6.9 fL (7.4-10.4); Platelet Count 302 thou/uL (130-400); RBC Distribution Width 17.7 % (11.5-14.5); Red Blood Cell (RBC) Count 3.84 mill/uL (4.20-5.40); White Blood Cell (WBC) Count 7.2 thou/uL (4.8-10.8)
[2021-06-30 16:09] LABS: Base Excess-Venous 12.4 mmol/L (-2.0 to 3.0); CO2 Tension (PvCO2) 66.2 mmHg (42.0-51.0); Calcium, Ionized 1.06 mmol/L (1.15-1.33); Chloride 94 mmol/L (98-107); Hemoglobin - Calc 12.3 g/dL (12.0-16.0); MDiff Complete? YES; Manual Diff?? NO; Potassium 3.5 mmol/L (3.5-5.1); Sodium 146 mmol/L (138-145); T. Carbon Dioxide 42.1 mmol/L (22.0-28.0); vO2 Saturation-calc 99.2 % (60.0-85.0)
[2021-06-30 16:18] LABS: ALT (SGPT) 9 U/L (8-55); AST (SGOT) 12 U/L (5-34); Albumin 3.2 g/dL (3.4-4.8); Alkaline Phosphatase 47 U/L (40-110); Anion Gap 19 mmol/L (10-20); BUN (Urea Nitrogen) 12 mg/dL (9.8-20.1); Bilirubin, Total 0.4 mg/dL (0.2-1.2); Calc. Creatinine Clearance 0 mL/min (70-130); Calcium 8.6 mg/dL (7.8-10.44); Carbon Dioxide 39 mmol/L (23-31); Globulin 3.2 g/dL (2.4-3.5); Glucose 83 mg/dL (80-115); Protein, Total 6.4 g/dL (5.8-8.1)
[2021-06-30 16:20] LABS: Chloride 93 mmol/L (98-107); Potassium 3.7 mmol/L (3.5-5.1); Sodium 147 mmol/L (136-145)
== END 2021-06-30 16:41 | disposition home or self-care (01) ==
LOC: BURERS 14:52
DX: J44.9 Chronic obstructive pulmonary disease, unspecified (principal); I10 Essential (primary) hypertension; E78.5 Hyperlipidemia, unspecified; Z87.891 Personal history of nicotine dependence; Z99.81 Dependence on supplemental oxygen; Z79.82 Long term (current) use of aspirin; Z79.899 Other long term (current) drug therapy
CPT/HCPCS: 36415; 71045; 82330; 82803; 83880; 94760

== ENCOUNTER 2022-03-03 16:18 | Emergency (ER) | payer MEDICARE ==
[2022-03-03] MEDS ORDERED: Ondansetron ODT 4 MG TAB ONE (16:49)
[2022-03-03 17:24] LABS: #Basophils 0.1 thou/uL (0.0-0.2); #Lymphocytes 0.5 thou/uL (1.20-3.40); #Monocytes 0.5 thou/uL (0.11-0.59); #Neutrophils 3.6 thou/uL (1.40-6.50); %Basophils 1.4 % (0.0-1.0); %Eosinophils 0.2 % (0.0-10.0); %Lymphocytes 10.8 % (21.0-51.0); %Monocytes 10.3 % (0.0-10.0); %Neutrophils 77.3 % (42.0-75.0); Hemoglobin 10.7 g/dL (12.0-16.0); Mean Corpuscular HGB CONC 29.4 g/dL (32.0-36.0); Mean Corpuscular Hemoglobin 27.9 pg (27.0-31.0); Mean Corpuscular Volume 94.9 fl (78.0-98.0); Mean Platelet Volume 6.6 fL (7.4-10.4); Platelet Count 235 10x3/uL (130-400); RBC Distribution Width 15.3 % (11.5-14.5); Red Blood Cell (RBC) Count 3.83 mill/uL (4.20-5.40); White Blood Cell (WBC) Count 4.7 10x3/uL (4.8-10.8)
[2022-03-03 17:49] LABS: ALT (SGPT) 11 U/L (8-55); AST (SGOT) 22 U/L (5-34); Albumin 2.8 g/dL (3.4-4.8); Alkaline Phosphatase 54 U/L (40-110); Anion Gap 13 mmol/L (10-20); BUN (Urea Nitrogen) 7 mg/dL (9.8-20.1); Bilirubin, Total 0.5 mg/dL (0.2-1.2); Calc. Creatinine Clearance 0 mL/min (70-130); Calcium 8.2 mg/dL (7.8-10.44); Carbon Dioxide 52 mmol/L (23-31); Estimated GFR 98; Globulin 3.1 g/dL (2.4-3.5); Glucose 81 mg/dL (80-115); Hypochromia SLIGHT = 6-15 cells (100X) (0-5/hpf); MDiff Complete? YES; Platelet Morphology Comment Appears Adequate; Protein, Total 5.9 g/dL (5.8-8.1)
[2022-03-03] MEDS ORDERED: Ipratropium Bromide 2.5 ml Neb ONE (17:51)
[2022-03-03] MEDS ORDERED: Albuterol 2.5 MG/0.5 ML NEB ONE (17:51)
[2022-03-03] MEDS ORDERED: Doxycycline 100 MG CAP ONE (17:51)
[2022-03-03] MEDS ORDERED: methylPREDNISolone Sod Succ/PF 125 MG/2 ML VIAL ONE (17:51)
[2022-03-03 17:53] LABS: Chloride 88 mmol/L (98-107); Sodium 150 mmol/L (136-145)
[2022-03-03] MEDS ORDERED: Ondansetron PF 4 MG/2 ML Vial ONE (18:00)
[2022-03-03 19:25] LABS: SARS-CoV-2 NAA Rapid Test Not Detected (NotDetected)
[2022-03-03] MEDS ORDERED: Promethazine HCl 25 MG/ML VIAL ONE (20:23)
[2022-03-03] MEDS ORDERED: Potassium Chloride 20 MEQ TAB ONE ×2 (22:54→22:59)
[2022-03-04 08:28] LABS: Base Excess-Venous 20.7 mmol/L (-2.0 to 3.0); CO2 Tension (PvCO2) 80.7 mmHg (42.0-51.0); Calcium, Ionized 1.07 mmol/L (1.15-1.33); Chloride 90 mmol/L (98-107); Hemoglobin - Calc 12.7 g/dL (12.0-16.0); Potassium 2.9 mmol/L (3.5-5.1); Sodium 148 mmol/L (138-145); T. Carbon Dioxide Greater than 50.0 mmol/L (22.0-28.0); vO2 Saturation-calc 51.4 % (60.0-85.0)
== END 2022-03-03 23:27 | disposition short-term general hospital (02) ==
LOC: BURERS 16:18
DX: J44.1 Chronic obstructive pulmonary disease with (acute) exacerbation (principal); I10 Essential (primary) hypertension; E78.5 Hyperlipidemia, unspecified; Z87.891 Personal history of nicotine dependence; Z20.822 Contact with and (suspected) exposure to COVID-19; Z79.82 Long term (current) use of aspirin; Z79.899 Other long term (current) drug therapy
CPT/HCPCS: 71045; 71275; 80053; 82330; 82435; 82803; 83605; 83880; 84132; 84295; 85014; 85025; 93005; U0002; 36415; 96374; 96375; J2405; J2550; J2930; J7611; Q0162

== ENCOUNTER 2022-03-07 19:39 | Inpatient (IN) | payer MEDICARE ==
[2022-03-07 20:39] LABS: #Monocytes 0.5 thou/uL (0.11-0.59); #Neutrophils 5.7 thou/uL (1.40-6.50); %Basophils 0.6 % (0.0-1.0); %Lymphocytes 13.9 % (21.0-51.0); %Monocytes 7.1 % (0.0-10.0); %Neutrophils 78.4 % (42.0-75.0); Hemoglobin 10.5 g/dL (12.0-16.0); Mean Corpuscular Hemoglobin 28.1 pg (27.0-31.0); Mean Corpuscular Volume 93.5 fl (78.0-98.0); Mean Platelet Volume 7.4 fL (7.4-10.4); Platelet Count 219 10x3/uL (130-400); RBC Distribution Width 15.3 % (11.5-14.5); Red Blood Cell (RBC) Count 3.76 mill/uL (4.20-5.40); White Blood Cell (WBC) Count 7.2 10x3/uL (4.8-10.8)
[2022-03-07] MEDS ORDERED: methylPREDNISolone Sod Succ/PF 125 MG/2 ML VIAL ONE (20:59)
[2022-03-07] MEDS ORDERED: Ipratropium/Albuterol 3 ML NEB ONE (20:59)
[2022-03-07 21:00] LABS: ALT (SGPT) 35 U/L (8-55); AST (SGOT) 58 U/L (5-34); Albumin 2.8 g/dL (3.4-4.8); Alkaline Phosphatase 43 U/L (40-110); Anion Gap 13 mmol/L (10-20); BUN (Urea Nitrogen) 14 mg/dL (9.8-20.1); Bilirubin, Total 0.4 mg/dL (0.2-1.2); Calc. Creatinine Clearance 0 mL/min (70-130); Calcium 8.4 mg/dL (7.8-10.44); Carbon Dioxide 41 mmol/L (23-31); Estimated GFR 98; Glucose 82 mg/dL (80-115); Protein, Total 5.8 g/dL (5.8-8.1)
[2022-03-07 21:01] LABS: Chloride 91 mmol/L (98-107); Potassium 4.6 mmol/L (3.5-5.1); Sodium 140 mmol/L (136-145)
[2022-03-07 21:04] LABS: Bilirubin Negative (Negative); Blood, Urine Small (Negative); Clarity Slightly Cloudy (Clear); Glucose, Urine (Dipstick) Negative (Negative); Ketone, Urine Negative (Negative); Leukocyte Large (Negative); Nitrite Negative (Negative); Protein, Urine (Dipstick) 30 mg/dL (Neg-Trace); pH, Urine 8.5 (5.0-9.0)
[2022-03-07 21:11] LABS: Bacteria/HPF 4+ HPF (None Seen); Squamous Epithelial 0-3 HPF (0-3); WBC/HPF 21-50 HPF (0-3)
[2022-03-07] MEDS ORDERED: Cefdinir 300 MG CAP PO SCH (21:30)
[2022-03-07] MEDS ORDERED: Acetaminophen 325 MG TAB PO PRN (23:15)
[2022-03-07] MEDS ORDERED: Ondansetron ODT 4 MG TAB SL PRN (23:15)
[2022-03-07] MEDS ORDERED: Ondansetron PF 4 MG/2 ML Vial IVP PRN (23:15)
[2022-03-07 23:24] VITALS: BMI 36.6
[2022-03-08] MEDS ORDERED: Nystatin Powder 15 GM BOT TOP PRN (06:06)
[2022-03-08] MEDS: ALPRAZolam 0.5 MG TAB PO SCH ×2 (08:46→21:15)
[2022-03-08] MEDS: Cefdinir 300 MG CAP PO SCH ×2 (08:47→21:14)
[2022-03-08] MEDS: predniSONE 5 MG TAB PO SCH (08:47)
[2022-03-08] MEDS: Aspirin 325 mg Enteric Coated Tablet PO SCH (08:47)
[2022-03-08] MEDS: Metoprolol Tartrate 25 MG TAB PO SCH ×2 (08:48→21:15)
[2022-03-08] MEDS: Cyanocobalamin (Vitamin B-12) 1,000 MCG TAB PO SCH (08:48)
[2022-03-08] MEDS: Sertraline 100 MG TAB PO SCH (08:48)
[2022-03-08] MEDS ORDERED: Cefdinir 300 MG CAP PO SCH (09:00)
[2022-03-08] MEDS ORDERED: Ondansetron ODT 4 MG TAB PO PRN (17:14)
[2022-03-08] MEDS: Acetaminophen 325 MG TAB PO PRN (17:22)
[2022-03-08] MEDS: Mometasone/Formoterol 200/5 60 PUFF INH SCH (17:24)
[2022-03-08] MEDS: Atorvastatin Calcium 10 MG TAB PO SCH (21:15)
[2022-03-09] MEDS: Acetaminophen 325 MG TAB PO PRN ×4 (04:39→21:21)
[2022-03-09] MEDS: Mometasone/Formoterol 200/5 60 PUFF INH SCH ×2 (08:34→18:34)
[2022-03-09] MEDS: Sulfameth/Trimethoprim DS 800-160mg TAB PO SCH ×2 (08:36→21:21)
[2022-03-09] MEDS: Saccharomyces boulardii 250 MG CAP PO SCH (08:37)
[2022-03-09] MEDS: Cefdinir 300 MG CAP PO SCH ×2 (08:37→21:20)
[2022-03-09] MEDS: ALPRAZolam 0.5 MG TAB PO SCH ×2 (08:38→21:20)
[2022-03-09] MEDS: Aspirin 325 mg Enteric Coated Tablet PO SCH (08:38)
[2022-03-09] MEDS: Metoprolol Tartrate 25 MG TAB PO SCH ×2 (08:38→21:20)
[2022-03-09] MEDS: predniSONE 5 MG TAB PO SCH (08:38)
[2022-03-09] MEDS: Sertraline 100 MG TAB PO SCH (08:38)
[2022-03-09] MEDS: Cyanocobalamin (Vitamin B-12) 1,000 MCG TAB PO SCH (08:39)
[2022-03-09] MEDS ORDERED: Polyethylene Glycol 3350 17 GM Packet PO PRN (09:00)
[2022-03-09] MEDS: Atorvastatin Calcium 10 MG TAB PO SCH (21:20)
[2022-03-10] MEDS: Mometasone/Formoterol 200/5 60 PUFF INH SCH (06:12)
[2022-03-10] MEDS: predniSONE 5 MG TAB PO SCH (08:05)
[2022-03-10] MEDS: Saccharomyces boulardii 250 MG CAP PO SCH (08:05)
[2022-03-10] MEDS: ALPRAZolam 0.5 MG TAB PO SCH (08:05)
[2022-03-10] MEDS: Sulfameth/Trimethoprim DS 800-160mg TAB PO SCH (08:05)
[2022-03-10] MEDS: Cefdinir 300 MG CAP PO SCH (08:05)
[2022-03-10] MEDS: Metoprolol Tartrate 25 MG TAB PO SCH (08:05)
[2022-03-10] MEDS: Cyanocobalamin (Vitamin B-12) 1,000 MCG TAB PO SCH (08:05)
[2022-03-10] MEDS: Aspirin 325 mg Enteric Coated Tablet PO SCH (08:06)
[2022-03-10] MEDS: Sertraline 100 MG TAB PO SCH (08:06)
[2022-03-10] MEDS ORDERED: Nitrofurantoin Monohyd/M-Cryst 100 MG CAP PO SCH ×2 (12:30→21:00)
[2022-03-10 14:36] VITALS: TEMP 99.1
[2022-03-10 15:47] VITALS: BP 130/81
[2022-03-11] MEDS ORDERED: FLU VACC QS2022-23(65YR UP)/PF 240 MCG/0.7 ML SYRINGE IM ONE (09:00)
== END 2022-03-10 15:40 | disposition swing bed (61) | DRG 690 ==
LOC: BURERS 19:39 → BURMED 21:53
PROVIDERS: ADMIT Family Medicine; ATTEND Family Medicine
DX: N39.0 Urinary tract infection, site not specified (principal); J96.11 Chronic respiratory failure with hypoxia; R53.1 Weakness; J44.9 Chronic obstructive pulmonary disease, unspecified; E78.5 Hyperlipidemia, unspecified; I10 Essential (primary) hypertension; F41.9 Anxiety disorder, unspecified; Z90.710 Acquired absence of both cervix and uterus; Z90.49 Acquired absence of other specified parts of digestive tract; Z98.890 Other specified postprocedural states; Z88.8 Allergy status to other drugs, medicaments and biological substances; Z79.899 Other long term (current) drug therapy; Z79.82 Long term (current) use of aspirin; Z87.891 Personal history of nicotine dependence
CPT/HCPCS: 36415; 51701; 80053; 81003; 81015; 83880; 84484; 85025; 87077; 87086; 87186; 94640; 94664; 94760; 96374; J1650; J2930; J7512; J7611; J7620

== ENCOUNTER 2022-03-10 15:44 | Inpatient (IN) | payer MEDICARE ==
[2022-03-10 16:14] VITALS: BMI 36.8
[2022-03-10] MEDS ORDERED: Ondansetron ODT 4 MG TAB PO PRN (17:30)
[2022-03-10] MEDS ORDERED: Vancomycin HCl 750 MG in Sodium Chloride 0.9% 250 ML 250 ML IVPB SCH (20:00)
[2022-03-10] MEDS ORDERED: Sulfameth/Trimethoprim DS 800-160mg TAB PO SCH (21:00)
[2022-03-10] MEDS ORDERED: Linezolid 600 MG TAB PO SCH (21:00)
[2022-03-10] MEDS: ALPRAZolam 0.5 MG TAB PO SCH (22:40)
[2022-03-10] MEDS: Atorvastatin Calcium 10 MG TAB PO SCH (22:41)
[2022-03-10] MEDS: Metoprolol Tartrate 25 MG TAB PO SCH (22:41)
[2022-03-10] MEDS: Vancomycin HCl 750 MG in Sodium Chloride 0.9% 250 ML 250 ML IVPB SCH (22:41)
[2022-03-10] MEDS: Vancomycin HCl 500 MG in Sodium Chloride 0.9% 100 ML IVPB SCH (22:43)
[2022-03-10] MEDS: Mometasone/Formoterol 200/5 60 PUFF INH SCH (22:45)
[2022-03-11] MEDS: Acetaminophen 325 MG TAB PO PRN ×2 (06:16→14:35)
[2022-03-11] MEDS ORDERED: Polyethylene Glycol 3350 17 GM Packet PO PRN (09:00)
[2022-03-11] MEDS: Aspirin 325 mg Enteric Coated Tablet PO SCH (09:19)
[2022-03-11] MEDS: ALPRAZolam 0.5 MG TAB PO SCH ×2 (09:19→22:19)
[2022-03-11] MEDS: Cyanocobalamin (Vitamin B-12) 1,000 MCG TAB PO SCH (09:20)
[2022-03-11] MEDS: Metoprolol Tartrate 25 MG TAB PO SCH ×2 (09:20→22:19)
[2022-03-11] MEDS: Saccharomyces boulardii 250 MG CAP PO SCH (09:20)
[2022-03-11] MEDS: Sertraline 100 MG TAB PO SCH (09:20)
[2022-03-11] MEDS: Vancomycin HCl 500 MG in Sodium Chloride 0.9% 100 ML IVPB SCH ×2 (09:20→22:19)
[2022-03-11] MEDS: Vancomycin HCl 750 MG in Sodium Chloride 0.9% 250 ML 250 ML IVPB SCH ×2 (09:20→22:20)
[2022-03-11] MEDS: Mometasone/Formoterol 200/5 60 PUFF INH SCH ×2 (09:21→22:22)
[2022-03-11] MEDS: Atorvastatin Calcium 10 MG TAB PO SCH (22:18)
[2022-03-11] MEDS: Hydrocortisone 1% Cream 30 GM TUBE TOP SCH (22:21)
[2022-03-11] MEDS: Nystatin Powder 15 GM BOT TOP PRN (22:21)
[2022-03-12 08:20] LABS: Vancomycin, Trough 20.6 ug/mL
[2022-03-12] MEDS: Mometasone/Formoterol 200/5 60 PUFF INH SCH ×2 (08:38→21:42)
[2022-03-12] MEDS: Aspirin 325 mg Enteric Coated Tablet PO SCH (08:38)
[2022-03-12] MEDS: Sertraline 100 MG TAB PO SCH (08:38)
[2022-03-12] MEDS: Metoprolol Tartrate 25 MG TAB PO SCH ×2 (08:38→21:05)
[2022-03-12] MEDS: Saccharomyces boulardii 250 MG CAP PO SCH (08:38)
[2022-03-12] MEDS: Cyanocobalamin (Vitamin B-12) 1,000 MCG TAB PO SCH (08:38)
[2022-03-12] MEDS: Hydrocortisone 1% Cream 30 GM TUBE TOP SCH ×2 (08:40→21:39)
[2022-03-12] MEDS: ALPRAZolam 0.5 MG TAB PO SCH ×2 (08:41→21:04)
[2022-03-12 08:42] LABS: SARS-CoV-2 NAA Rapid Test Not Detected (NotDetected)
[2022-03-12] MEDS: Vancomycin HCl 1 GM in Sodium Chloride 0.9% 250 ML 250 ML IVPB SCH ×2 (09:02→21:40)
[2022-03-12] MEDS: Acetaminophen 325 MG TAB PO PRN (14:09)
[2022-03-12] MEDS: Atorvastatin Calcium 10 MG TAB PO SCH (21:04)
[2022-03-12] MEDS: Nystatin Powder 15 GM BOT TOP PRN (21:39)
[2022-03-13] MEDS: Acetaminophen 325 MG TAB PO PRN ×3 (02:30→22:11)
[2022-03-13] MEDS: Aspirin 325 mg Enteric Coated Tablet PO SCH (08:34)
[2022-03-13] MEDS: Saccharomyces boulardii 250 MG CAP PO SCH (08:34)
[2022-03-13] MEDS: Sertraline 100 MG TAB PO SCH (08:34)
[2022-03-13] MEDS: Metoprolol Tartrate 25 MG TAB PO SCH ×2 (08:34→20:42)
[2022-03-13] MEDS: Cyanocobalamin (Vitamin B-12) 1,000 MCG TAB PO SCH (08:34)
[2022-03-13] MEDS: ALPRAZolam 0.5 MG TAB PO SCH ×2 (08:34→20:42)
[2022-03-13] MEDS: Mometasone/Formoterol 200/5 60 PUFF INH SCH ×2 (08:35→20:43)
[2022-03-13] MEDS: Hydrocortisone 1% Cream 30 GM TUBE TOP SCH ×2 (08:35→20:43)
[2022-03-13 08:39] LABS: Vancomycin, Trough 23.5 ug/mL
[2022-03-13] MEDS: Vancomycin HCl 750 MG in Sodium Chloride 0.9% 250 ML 250 ML IVPB SCH ×2 (08:54→20:42)
[2022-03-13] MEDS: Atorvastatin Calcium 10 MG TAB PO SCH (20:42)
[2022-03-13] MEDS: Nystatin Powder 15 GM BOT TOP PRN (20:43)
[2022-03-14] MEDS: Acetaminophen 325 MG TAB PO PRN ×3 (04:14→21:44)
[2022-03-14] MEDS ORDERED: diphenhydrAMINE 12.5 MG/5 ML UDCUP PO PRN (06:52)
[2022-03-14] MEDS: Cyanocobalamin (Vitamin B-12) 1,000 MCG TAB PO SCH (08:23)
[2022-03-14] MEDS: Sertraline 100 MG TAB PO SCH (08:23)
[2022-03-14] MEDS: ALPRAZolam 0.5 MG TAB PO SCH ×2 (08:24→21:43)
[2022-03-14] MEDS: Metoprolol Tartrate 25 MG TAB PO SCH ×2 (08:24→21:44)
[2022-03-14] MEDS: Aspirin 325 mg Enteric Coated Tablet PO SCH (08:24)
[2022-03-14] MEDS: Saccharomyces boulardii 250 MG CAP PO SCH (08:24)
[2022-03-14] MEDS: Vancomycin HCl 750 MG in Sodium Chloride 0.9% 250 ML 250 ML IVPB SCH ×2 (08:25→22:04)
[2022-03-14] MEDS: Hydrocortisone 1% Cream 30 GM TUBE TOP SCH ×2 (08:26→22:02)
[2022-03-14] MEDS: Mometasone/Formoterol 200/5 60 PUFF INH SCH ×2 (08:26→22:01)
[2022-03-14] MEDS: diphenhydrAMINE 25 MG CAP PO PRN (13:55)
[2022-03-14 20:24] LABS: Vancomycin, Trough 19.9 ug/mL
[2022-03-14] MEDS: Atorvastatin Calcium 10 MG TAB PO SCH (21:43)
[2022-03-14] MEDS: Vancomycin HCl 500 MG in Sodium Chloride 0.9% 100 ML IVPB SCH (21:48)
[2022-03-14] MEDS: Nystatin Powder 15 GM BOT TOP PRN (22:02)
[2022-03-15] MEDS: Acetaminophen 325 MG TAB PO PRN ×2 (05:44→20:47)
[2022-03-15] MEDS: diphenhydrAMINE 25 MG CAP PO PRN ×2 (05:44→20:48)
[2022-03-15] MEDS: Vancomycin HCl 500 MG in Sodium Chloride 0.9% 100 ML IVPB SCH ×2 (10:27→21:09)
[2022-03-15] MEDS: Saccharomyces boulardii 250 MG CAP PO SCH (10:28)
[2022-03-15] MEDS: ALPRAZolam 0.5 MG TAB PO SCH ×2 (10:28→20:37)
[2022-03-15] MEDS: Metoprolol Tartrate 25 MG TAB PO SCH ×2 (10:29→20:48)
[2022-03-15] MEDS: Sertraline 100 MG TAB PO SCH (10:29)
[2022-03-15] MEDS: Hydrocortisone 1% Cream 30 GM TUBE TOP SCH ×2 (10:29→20:46)
[2022-03-15] MEDS: Aspirin 325 mg Enteric Coated Tablet PO SCH (10:29)
[2022-03-15] MEDS: Cyanocobalamin (Vitamin B-12) 1,000 MCG TAB PO SCH (10:33)
[2022-03-15] MEDS: Mometasone/Formoterol 200/5 60 PUFF INH SCH ×2 (10:34→20:49)
[2022-03-15] MEDS: Nystatin Powder 15 GM BOT TOP PRN (20:47)
[2022-03-15] MEDS: Atorvastatin Calcium 10 MG TAB PO SCH (20:48)
[2022-03-16] MEDS: Acetaminophen 325 MG TAB PO PRN ×3 (03:21→18:17)
[2022-03-16 09:16] LABS: Vancomycin, Trough 16.4 ug/mL
[2022-03-16] MEDS: Saccharomyces boulardii 250 MG CAP PO SCH (09:46)
[2022-03-16] MEDS: Aspirin 325 mg Enteric Coated Tablet PO SCH (09:46)
[2022-03-16] MEDS: Cyanocobalamin (Vitamin B-12) 1,000 MCG TAB PO SCH (09:46)
[2022-03-16] MEDS: Metoprolol Tartrate 25 MG TAB PO SCH ×2 (09:46→21:11)
[2022-03-16] MEDS: ALPRAZolam 0.5 MG TAB PO SCH ×2 (09:46→21:11)
[2022-03-16] MEDS: Sertraline 100 MG TAB PO SCH (09:46)
[2022-03-16] MEDS: Vancomycin HCl 500 MG in Sodium Chloride 0.9% 100 ML IVPB SCH ×2 (09:47→21:09)
[2022-03-16] MEDS: Hydrocortisone 1% Cream 30 GM TUBE TOP SCH ×2 (09:48→21:34)
[2022-03-16] MEDS: Mometasone/Formoterol 200/5 60 PUFF INH SCH ×2 (10:23→21:32)
[2022-03-16 11:37] LABS: Hemoglobin 10.4 g/dL (12.0-16.0); Platelet Count 358 10x3/uL (130-400)
[2022-03-16] MEDS: diphenhydrAMINE 25 MG CAP PO PRN (13:26)
[2022-03-16] MEDS: Atorvastatin Calcium 10 MG TAB PO SCH (21:11)
[2022-03-16] MEDS: Nystatin Powder 15 GM BOT TOP PRN (21:34)
[2022-03-17] MEDS: Acetaminophen 325 MG TAB PO PRN ×2 (03:06→22:04)
[2022-03-17] MEDS: Aspirin 325 mg Enteric Coated Tablet PO SCH (08:36)
[2022-03-17] MEDS: Vancomycin HCl 500 MG in Sodium Chloride 0.9% 100 ML IVPB SCH ×2 (08:36→22:09)
[2022-03-17] MEDS: ALPRAZolam 0.5 MG TAB PO SCH ×2 (08:36→20:19)
[2022-03-17] MEDS: Metoprolol Tartrate 25 MG TAB PO SCH ×2 (08:37→20:19)
[2022-03-17] MEDS: Sertraline 100 MG TAB PO SCH (08:37)
[2022-03-17] MEDS: Saccharomyces boulardii 250 MG CAP PO SCH (08:37)
[2022-03-17] MEDS: Cyanocobalamin (Vitamin B-12) 1,000 MCG TAB PO SCH (08:37)
[2022-03-17] MEDS: Mometasone/Formoterol 200/5 60 PUFF INH SCH ×2 (08:50→20:20)
[2022-03-17] MEDS: Hydrocortisone 1% Cream 30 GM TUBE TOP SCH ×2 (08:52→20:19)
[2022-03-17] MEDS: Atorvastatin Calcium 10 MG TAB PO SCH (20:19)
[2022-03-17 21:37] LABS: Vancomycin, Trough 13.5 ug/mL
[2022-03-17] MEDS: diphenhydrAMINE 25 MG CAP PO PRN (22:05)
[2022-03-18] MEDS: Acetaminophen 325 MG TAB PO PRN ×3 (05:40→20:12)
[2022-03-18] MEDS: Metoprolol Tartrate 25 MG TAB PO SCH ×2 (08:16→20:11)
[2022-03-18] MEDS: Cyanocobalamin (Vitamin B-12) 1,000 MCG TAB PO SCH (08:16)
[2022-03-18] MEDS: ALPRAZolam 0.5 MG TAB PO SCH ×2 (08:16→20:11)
[2022-03-18] MEDS: Sertraline 100 MG TAB PO SCH (08:17)
[2022-03-18] MEDS: Saccharomyces boulardii 250 MG CAP PO SCH (08:17)
[2022-03-18] MEDS: Aspirin 325 mg Enteric Coated Tablet PO SCH (08:17)
[2022-03-18] MEDS: Hydrocortisone 1% Cream 30 GM TUBE TOP SCH ×2 (08:18→20:44)
[2022-03-18] MEDS: Mometasone/Formoterol 200/5 60 PUFF INH SCH ×2 (08:18→21:15)
[2022-03-18] MEDS: diphenhydrAMINE 25 MG CAP PO PRN ×2 (14:06→20:12)
[2022-03-18] MEDS: Atorvastatin Calcium 10 MG TAB PO SCH (20:12)
[2022-03-19] MEDS: diphenhydrAMINE 25 MG CAP PO PRN ×3 (03:20→19:52)
[2022-03-19] MEDS: Acetaminophen 325 MG TAB PO PRN ×3 (03:20→19:53)
[2022-03-19] MEDS: ALPRAZolam 0.5 MG TAB PO SCH ×2 (09:32→20:05)
[2022-03-19] MEDS: Cyanocobalamin (Vitamin B-12) 1,000 MCG TAB PO SCH (09:33)
[2022-03-19] MEDS: Aspirin 325 mg Enteric Coated Tablet PO SCH (09:33)
[2022-03-19] MEDS: Metoprolol Tartrate 25 MG TAB PO SCH ×2 (09:33→20:05)
[2022-03-19] MEDS: Sertraline 100 MG TAB PO SCH (09:33)
[2022-03-19] MEDS: Saccharomyces boulardii 250 MG CAP PO SCH (09:33)
[2022-03-19] MEDS: Hydrocortisone 1% Cream 30 GM TUBE TOP SCH ×2 (09:34→20:08)
[2022-03-19] MEDS: Nystatin Powder 15 GM BOT TOP PRN ×2 (09:34→20:08)
[2022-03-19] MEDS: Mometasone/Formoterol 200/5 60 PUFF INH SCH ×2 (09:34→20:09)
[2022-03-19] MEDS: Atorvastatin Calcium 10 MG TAB PO SCH (20:05)
[2022-03-20] MEDS: Acetaminophen 325 MG TAB PO PRN ×3 (02:10→20:48)
[2022-03-20] MEDS: diphenhydrAMINE 25 MG CAP PO PRN ×2 (02:10→15:48)
[2022-03-20] MEDS: Sertraline 100 MG TAB PO SCH (09:45)
[2022-03-20] MEDS: Saccharomyces boulardii 250 MG CAP PO SCH (09:45)
[2022-03-20] MEDS: Aspirin 325 mg Enteric Coated Tablet PO SCH (09:45)
[2022-03-20] MEDS: ALPRAZolam 0.5 MG TAB PO SCH ×2 (09:45→20:47)
[2022-03-20] MEDS: Cyanocobalamin (Vitamin B-12) 1,000 MCG TAB PO SCH (09:45)
[2022-03-20] MEDS: Metoprolol Tartrate 25 MG TAB PO SCH ×2 (09:46→20:48)
[2022-03-20] MEDS: Mometasone/Formoterol 200/5 60 PUFF INH SCH ×2 (09:46→20:50)
[2022-03-20] MEDS: Hydrocortisone 1% Cream 30 GM TUBE TOP SCH ×2 (09:46→20:50)
[2022-03-20] MEDS: Atorvastatin Calcium 10 MG TAB PO SCH (20:47)
[2022-03-21] MEDS: diphenhydrAMINE 25 MG CAP PO PRN ×2 (01:58→13:57)
[2022-03-21] MEDS: Acetaminophen 325 MG TAB PO PRN ×3 (01:58→21:09)
[2022-03-21] MEDS: ALPRAZolam 0.5 MG TAB PO SCH ×2 (09:43→21:19)
[2022-03-21] MEDS: Saccharomyces boulardii 250 MG CAP PO SCH (09:52)
[2022-03-21] MEDS: Metoprolol Tartrate 25 MG TAB PO SCH ×2 (09:52→21:10)
[2022-03-21] MEDS: Cyanocobalamin (Vitamin B-12) 1,000 MCG TAB PO SCH (09:52)
[2022-03-21] MEDS: Sertraline 100 MG TAB PO SCH (09:52)
[2022-03-21] MEDS: Aspirin 325 mg Enteric Coated Tablet PO SCH (09:52)
[2022-03-21] MEDS: Hydrocortisone 1% Cream 30 GM TUBE TOP SCH ×2 (09:53→21:11)
[2022-03-21] MEDS: Mometasone/Formoterol 200/5 60 PUFF INH SCH ×2 (09:54→21:11)
[2022-03-21] MEDS: Atorvastatin Calcium 10 MG TAB PO SCH (21:10)
[2022-03-22] MEDS: Acetaminophen 325 MG TAB PO PRN (04:45)
[2022-03-22] MEDS: diphenhydrAMINE 25 MG CAP PO PRN (04:45)
[2022-03-22] MEDS: Aspirin 325 mg Enteric Coated Tablet PO SCH (09:06)
[2022-03-22] MEDS: Metoprolol Tartrate 25 MG TAB PO SCH (09:06)
[2022-03-22] MEDS: Cyanocobalamin (Vitamin B-12) 1,000 MCG TAB PO SCH (09:06)
[2022-03-22] MEDS: Saccharomyces boulardii 250 MG CAP PO SCH (09:07)
[2022-03-22] MEDS: Hydrocortisone 1% Cream 30 GM TUBE TOP SCH (09:08)
[2022-03-22] MEDS: Sertraline 100 MG TAB PO SCH (09:09)
[2022-03-22] MEDS: Mometasone/Formoterol 200/5 60 PUFF INH SCH (09:09)
[2022-03-22] MEDS: ALPRAZolam 0.5 MG TAB PO SCH (09:14)
[2022-03-22 12:43] VITALS: BP 145/83; TEMP 98
== END 2022-03-22 13:15 | disposition home or self-care (01) | DRG 603 ==
LOC: BURMED 15:44
PROVIDERS: ADMIT Family Medicine; ATTEND Family Medicine
DX: L03.115 Cellulitis of right lower limb (principal); J96.11 Chronic respiratory failure with hypoxia; N39.0 Urinary tract infection, site not specified; J44.9 Chronic obstructive pulmonary disease, unspecified; I10 Essential (primary) hypertension; E78.5 Hyperlipidemia, unspecified; F41.9 Anxiety disorder, unspecified; Z20.822 Contact with and (suspected) exposure to COVID-19; R53.1 Weakness
CPT/HCPCS: 36415; 80202; 82565; 85014; 85018; 85049; 87811; 94664; J1650; J3370; J3490; J7050; J7611; Q0162; U0002

== ENCOUNTER 2022-05-27 15:18 | Inpatient (IN) | payer MEDICARE ==
[2022-05-27] MEDS ORDERED: Ondansetron ODT 4 MG TAB PO PRN (20:54)
[2022-05-27] MEDS: diphenhydrAMINE 25 MG CAP PO SCH (22:08)
[2022-05-27] MEDS: Metoprolol Tartrate 25 MG TAB PO SCH (22:08)
[2022-05-27] MEDS: Atorvastatin Calcium 40 MG TAB PO SCH (22:08)
[2022-05-27] MEDS: ALPRAZolam 0.5 MG TAB PO SCH (22:09)
[2022-05-27] MEDS: Mometasone/Formoterol 200/5 60 PUFF INH SCH (22:09)
[2022-05-27] MEDS: Nystatin Powder 15 GM BOT TOP PRN (22:15)
[2022-05-27] MEDS: CEFTOLOZANE IV SCH (22:53)
[2022-05-27] MEDS ORDERED: Sodium Chloride 0.9% 100 ML BAG ONE (22:53)
[2022-05-27] MEDS: TAZOBACTAM IV SCH (22:53)
[2022-05-28] MEDS: TAZOBACTAM IV SCH ×3 (05:11→22:27)
[2022-05-28] MEDS: CEFTOLOZANE IV SCH ×3 (05:11→22:27)
[2022-05-28] MEDS ORDERED: Sodium Chloride 0.9% 100 ML BAG ONE ×3 (05:11→22:27)
[2022-05-28] MEDS: ALPRAZolam 0.5 MG TAB PO SCH ×2 (08:20→20:20)
[2022-05-28] MEDS: Acetaminophen 325 MG TAB PO PRN ×2 (08:20→15:23)
[2022-05-28] MEDS: diphenhydrAMINE 25 MG CAP PO SCH ×2 (08:20→20:20)
[2022-05-28] MEDS: Cyanocobalamin (Vitamin B-12) 1,000 MCG TAB PO SCH (08:20)
[2022-05-28] MEDS: Aspirin 325 MG TAB PO SCH (08:21)
[2022-05-28] MEDS: Saccharomyces boulardii 250 MG CAP PO SCH (08:21)
[2022-05-28] MEDS: Clopidogrel Bisulfate 75 MG TAB PO SCH (08:21)
[2022-05-28] MEDS: Metoprolol Tartrate 25 MG TAB PO SCH ×2 (08:21→20:20)
[2022-05-28] MEDS: Sertraline 100 MG TAB PO SCH (08:21)
[2022-05-28] MEDS: Mometasone/Formoterol 200/5 60 PUFF INH SCH ×2 (08:23→20:25)
[2022-05-28] MEDS ORDERED: FLU VACC QS2022-23(65YR UP)/PF 240 MCG/0.7 ML SYRINGE IM ONE (09:00)
[2022-05-28] MEDS ORDERED: Acetaminophen 325 MG TAB PO PRN (14:03)
[2022-05-28] MEDS ORDERED: Polyethylene Glycol 3350 17 GM Packet PO PRN (14:03)
[2022-05-28] MEDS ORDERED: Ondansetron ODT 4 MG TAB PO PRN (14:03)
[2022-05-28] MEDS ORDERED: Nystatin Powder 15 GM BOT TOP PRN (14:03)
[2022-05-28] MEDS ORDERED: Mometasone/Formoterol 200/5 60 PUFF INH SCH (19:00)
[2022-05-28] MEDS: Atorvastatin Calcium 40 MG TAB PO SCH (20:20)
[2022-05-28] MEDS: Nystatin Powder 15 GM BOT TOP PRN (20:26)
[2022-05-28] MEDS ORDERED: Metoprolol Tartrate 25 MG TAB PO SCH (21:00)
[2022-05-28] MEDS ORDERED: Atorvastatin Calcium 40 MG TAB PO SCH (21:00)
[2022-05-28] MEDS ORDERED: diphenhydrAMINE 25 MG CAP PO SCH (21:00)
[2022-05-28] MEDS ORDERED: ALPRAZOLAM 1 MG PO SCH (21:00)
[2022-05-28] MEDS ORDERED: Non-Formulary Item 1 EACH (Omeprazole [Omeprazole] 20 MG Capsule.Dr) PO SCH (21:00)
[2022-05-28] MEDS ORDERED: TAZOBACTAM IVPB SCH (22:00)
[2022-05-28] MEDS ORDERED: CEFTOLOZANE IVPB SCH (22:00)
[2022-05-29] MEDS: TAZOBACTAM IV SCH ×3 (05:23→22:07)
[2022-05-29] MEDS ORDERED: Sodium Chloride 0.9% 100 ML BAG ONE ×3 (05:23→22:07)
[2022-05-29] MEDS: CEFTOLOZANE IV SCH ×3 (05:23→22:07)
[2022-05-29] MEDS: Acetaminophen 325 MG TAB PO PRN (06:37)
[2022-05-29] MEDS ORDERED: Saccharomyces boulardii 250 MG CAP PO SCH (09:00)
[2022-05-29] MEDS ORDERED: Clopidogrel Bisulfate 75 MG TAB PO SCH (09:00)
[2022-05-29] MEDS ORDERED: Cyanocobalamin (Vitamin B-12) 1,000 MCG TAB PO SCH (09:00)
[2022-05-29] MEDS ORDERED: Sertraline 100 MG TAB PO SCH (09:00)
[2022-05-29] MEDS ORDERED: Aspirin 325 mg Enteric Coated Tablet PO SCH (09:00)
[2022-05-29] MEDS: Cyanocobalamin (Vitamin B-12) 1,000 MCG TAB PO SCH (09:12)
[2022-05-29] MEDS: ALPRAZolam 0.5 MG TAB PO SCH ×2 (09:12→20:08)
[2022-05-29] MEDS: Polyethylene Glycol 3350 17 GM Packet PO PRN (09:12)
[2022-05-29] MEDS: Saccharomyces boulardii 250 MG CAP PO SCH (09:13)
[2022-05-29] MEDS: Metoprolol Tartrate 25 MG TAB PO SCH ×2 (09:13→20:08)
[2022-05-29] MEDS: Aspirin 325 MG TAB PO SCH (09:13)
[2022-05-29] MEDS: diphenhydrAMINE 25 MG CAP PO SCH ×2 (09:13→20:08)
[2022-05-29] MEDS: Sertraline 100 MG TAB PO SCH (09:13)
[2022-05-29] MEDS: Clopidogrel Bisulfate 75 MG TAB PO SCH (09:13)
[2022-05-29] MEDS: Mometasone/Formoterol 200/5 60 PUFF INH SCH ×2 (09:13→20:12)
[2022-05-29 15:50] VITALS: BMI 30.2
[2022-05-29] MEDS: Atorvastatin Calcium 40 MG TAB PO SCH (20:08)
[2022-05-30] MEDS: CEFTOLOZANE IV SCH ×2 (05:06→13:51)
[2022-05-30] MEDS ORDERED: Sodium Chloride 0.9% 100 ML BAG ONE ×2 (05:06→13:51)
[2022-05-30] MEDS: TAZOBACTAM IV SCH ×2 (05:06→13:51)
[2022-05-30 05:23] LABS: #Basophils 0.1 thou/uL (0.0-0.2); #Eosinphils 0.2 thou/uL (0.0-0.7); #Lymphocytes 1.8 thou/uL (1.20-3.40); #Monocytes 0.7 thou/uL (0.11-0.59); #Neutrophils 4.8 thou/uL (1.40-6.50); %Basophils 1.2 % (0.0-1.0); %Eosinophils 2.6 % (0.0-10.0); %Lymphocytes 23.4 % (21.0-51.0); %Monocytes 8.8 % (0.0-10.0); Hemoglobin 11.2 g/dL (12.0-16.0); Mean Corpuscular HGB CONC 30.2 g/dL (32.0-36.0); Mean Corpuscular Hemoglobin 26.4 pg (27.0-31.0); Mean Corpuscular Volume 87.5 fl (78.0-98.0); Mean Platelet Volume 8.7 fL (7.4-10.4); Platelet Count 258 10x3/uL (130-400); RBC Distribution Width 15.2 % (11.5-14.5); Red Blood Cell (RBC) Count 4.25 mill/uL (4.20-5.40); White Blood Cell (WBC) Count 7.5 10x3/uL (4.8-10.8)
[2022-05-30 05:47] LABS: ALT (SGPT) 16 U/L (8-55); AST (SGOT) 16 U/L (5-34); Albumin 3.6 g/dL (3.4-4.8); Alkaline Phosphatase 44 U/L (40-110); Anion Gap 12 mmol/L (10-20); BUN (Urea Nitrogen) 13 mg/dL (9.8-20.1); Bilirubin, Total 0.4 mg/dL (0.2-1.2); Calc. Creatinine Clearance 99 mL/min (70-130); Calcium 9.1 mg/dL (7.8-10.44); Carbon Dioxide 29 mmol/L (23-31); Chloride 104 mmol/L (98-107); Estimated GFR 96; Globulin 3.4 g/dL (2.4-3.5); Glucose 83 mg/dL (80-115); Potassium 3.3 mmol/L (3.5-5.1); Sodium 142 mmol/L (136-145)
[2022-05-30] MEDS: Acetaminophen 325 MG TAB PO PRN (06:55)
[2022-05-30] MEDS: Sertraline 100 MG TAB PO SCH (08:55)
[2022-05-30] MEDS: Aspirin 325 MG TAB PO SCH (08:55)
[2022-05-30] MEDS: Metoprolol Tartrate 25 MG TAB PO SCH ×2 (08:55→20:30)
[2022-05-30] MEDS: Cyanocobalamin (Vitamin B-12) 1,000 MCG TAB PO SCH (08:55)
[2022-05-30] MEDS: Polyethylene Glycol 3350 17 GM Packet PO PRN (08:55)
[2022-05-30] MEDS: diphenhydrAMINE 25 MG CAP PO SCH ×2 (08:55→20:30)
[2022-05-30] MEDS: ALPRAZolam 0.5 MG TAB PO SCH ×2 (08:55→20:30)
[2022-05-30] MEDS: Clopidogrel Bisulfate 75 MG TAB PO SCH (08:55)
[2022-05-30] MEDS: Saccharomyces boulardii 250 MG CAP PO SCH (08:55)
[2022-05-30] MEDS: Mometasone/Formoterol 200/5 60 PUFF INH SCH ×2 (08:56→20:30)
[2022-05-30] MEDS ORDERED: Potassium Chloride 20 MEQ TAB PO SCH (09:30)
[2022-05-30] MEDS: Triamcinolone 0.1% Cream 15 GM TUBE TOP PRN (17:33)
[2022-05-30] MEDS: Atorvastatin Calcium 40 MG TAB PO SCH (20:30)
[2022-05-31] MEDS: Acetaminophen 325 MG TAB PO PRN ×2 (06:33→15:26)
[2022-05-31] MEDS: Potassium Bicarbonate/Cit Ac 20 MEQ TAB PO SCH (09:20)
[2022-05-31] MEDS: Saccharomyces boulardii 250 MG CAP PO SCH (09:20)
[2022-05-31] MEDS: Metoprolol Tartrate 25 MG TAB PO SCH ×2 (09:20→20:25)
[2022-05-31] MEDS: Cyanocobalamin (Vitamin B-12) 1,000 MCG TAB PO SCH (09:20)
[2022-05-31] MEDS: Clopidogrel Bisulfate 75 MG TAB PO SCH (09:20)
[2022-05-31] MEDS: Polyethylene Glycol 3350 17 GM Packet PO PRN (09:20)
[2022-05-31] MEDS: Aspirin 325 MG TAB PO SCH (09:20)
[2022-05-31] MEDS: Mometasone/Formoterol 200/5 60 PUFF INH SCH ×2 (09:21→20:30)
[2022-05-31] MEDS: ALPRAZolam 0.5 MG TAB PO SCH ×2 (09:21→20:26)
[2022-05-31] MEDS: diphenhydrAMINE 25 MG CAP PO SCH ×2 (09:21→20:25)
[2022-05-31] MEDS: Sertraline 100 MG TAB PO SCH (09:21)
[2022-05-31] MEDS: Atorvastatin Calcium 40 MG TAB PO SCH (20:25)
[2022-06-01] MEDS: Acetaminophen 325 MG TAB PO PRN ×2 (05:51→20:39)
[2022-06-01] MEDS: Clopidogrel Bisulfate 75 MG TAB PO SCH (08:14)
[2022-06-01] MEDS: ALPRAZolam 0.5 MG TAB PO SCH ×2 (08:15→20:39)
[2022-06-01] MEDS: Aspirin 325 MG TAB PO SCH (08:15)
[2022-06-01] MEDS: diphenhydrAMINE 25 MG CAP PO SCH ×2 (08:15→20:39)
[2022-06-01] MEDS: Sertraline 100 MG TAB PO SCH (08:17)
[2022-06-01] MEDS: Saccharomyces boulardii 250 MG CAP PO SCH (08:17)
[2022-06-01] MEDS: Cyanocobalamin (Vitamin B-12) 1,000 MCG TAB PO SCH (08:17)
[2022-06-01] MEDS: Potassium Bicarbonate/Cit Ac 20 MEQ TAB PO SCH (08:17)
[2022-06-01] MEDS: Metoprolol Tartrate 25 MG TAB PO SCH ×2 (08:17→20:39)
[2022-06-01] MEDS: Mometasone/Formoterol 200/5 60 PUFF INH SCH ×2 (08:26→20:40)
[2022-06-01] MEDS: Atorvastatin Calcium 40 MG TAB PO SCH (20:39)
[2022-06-02] MEDS: Aspirin 325 MG TAB PO SCH (08:26)
[2022-06-02] MEDS: diphenhydrAMINE 25 MG CAP PO SCH ×2 (08:26→21:00)
[2022-06-02] MEDS: Metoprolol Tartrate 25 MG TAB PO SCH ×2 (08:26→21:00)
[2022-06-02] MEDS: Clopidogrel Bisulfate 75 MG TAB PO SCH (08:27)
[2022-06-02] MEDS: Potassium Bicarbonate/Cit Ac 20 MEQ TAB PO SCH (08:27)
[2022-06-02] MEDS: ALPRAZolam 0.5 MG TAB PO SCH ×2 (08:27→21:00)
[2022-06-02] MEDS: Saccharomyces boulardii 250 MG CAP PO SCH (08:28)
[2022-06-02] MEDS: Sertraline 100 MG TAB PO SCH (08:28)
[2022-06-02] MEDS ORDERED: cloNIDine 0.1 MG TAB PO PRN (08:28)
[2022-06-02] MEDS: Cyanocobalamin (Vitamin B-12) 1,000 MCG TAB PO SCH (08:28)
[2022-06-02] MEDS: Mometasone/Formoterol 200/5 60 PUFF INH SCH ×2 (08:30→21:07)
[2022-06-02] MEDS: Acetaminophen 325 MG TAB PO PRN (12:13)
[2022-06-02] MEDS: Atorvastatin Calcium 40 MG TAB PO SCH (21:00)
[2022-06-03] MEDS: diphenhydrAMINE 25 MG CAP PO SCH ×2 (08:51→22:04)
[2022-06-03] MEDS: Potassium Bicarbonate/Cit Ac 20 MEQ TAB PO SCH (08:51)
[2022-06-03] MEDS: Clopidogrel Bisulfate 75 MG TAB PO SCH (08:51)
[2022-06-03] MEDS: Cyanocobalamin (Vitamin B-12) 1,000 MCG TAB PO SCH (08:51)
[2022-06-03] MEDS: ALPRAZolam 0.5 MG TAB PO SCH ×2 (08:51→22:04)
[2022-06-03] MEDS: Saccharomyces boulardii 250 MG CAP PO SCH (08:51)
[2022-06-03] MEDS: Aspirin 325 MG TAB PO SCH (08:51)
[2022-06-03] MEDS: Metoprolol Tartrate 25 MG TAB PO SCH ×2 (08:51→22:05)
[2022-06-03] MEDS: Sertraline 100 MG TAB PO SCH (08:55)
[2022-06-03] MEDS: Mometasone/Formoterol 200/5 60 PUFF INH SCH ×2 (08:57→22:07)
[2022-06-03] MEDS: Acetaminophen 325 MG TAB PO PRN ×2 (09:35→16:29)
[2022-06-03] MEDS: Atorvastatin Calcium 40 MG TAB PO SCH (22:08)
[2022-06-04] MEDS: Potassium Bicarbonate/Cit Ac 20 MEQ TAB PO SCH (08:00)
[2022-06-04] MEDS: Clopidogrel Bisulfate 75 MG TAB PO SCH (08:23)
[2022-06-04] MEDS: Saccharomyces boulardii 250 MG CAP PO SCH (08:23)
[2022-06-04] MEDS: Aspirin 325 MG TAB PO SCH (08:23)
[2022-06-04] MEDS: diphenhydrAMINE 25 MG CAP PO SCH ×2 (08:23→21:38)
[2022-06-04] MEDS: Acetaminophen 325 MG TAB PO PRN ×2 (08:24→21:36)
[2022-06-04] MEDS: Cyanocobalamin (Vitamin B-12) 1,000 MCG TAB PO SCH (08:25)
[2022-06-04] MEDS: ALPRAZolam 0.5 MG TAB PO SCH ×2 (08:25→21:37)
[2022-06-04] MEDS: Metoprolol Tartrate 25 MG TAB PO SCH ×2 (08:31→21:38)
[2022-06-04] MEDS: Sertraline 100 MG TAB PO SCH (08:31)
[2022-06-04] MEDS: Mometasone/Formoterol 200/5 60 PUFF INH SCH ×2 (08:34→21:32)
[2022-06-04] MEDS: Atorvastatin Calcium 40 MG TAB PO SCH (21:38)
[2022-06-05] MEDS: Saccharomyces boulardii 250 MG CAP PO SCH (08:25)
[2022-06-05] MEDS: diphenhydrAMINE 25 MG CAP PO SCH ×2 (08:25→21:02)
[2022-06-05] MEDS: Metoprolol Tartrate 25 MG TAB PO SCH ×2 (08:25→21:05)
[2022-06-05] MEDS: Sertraline 100 MG TAB PO SCH (08:25)
[2022-06-05] MEDS: Clopidogrel Bisulfate 75 MG TAB PO SCH (08:25)
[2022-06-05] MEDS: ALPRAZolam 0.5 MG TAB PO SCH ×2 (08:25→21:01)
[2022-06-05] MEDS: Potassium Bicarbonate/Cit Ac 20 MEQ TAB PO SCH (08:25)
[2022-06-05] MEDS: Aspirin 325 MG TAB PO SCH (08:25)
[2022-06-05] MEDS: Cyanocobalamin (Vitamin B-12) 1,000 MCG TAB PO SCH (08:25)
[2022-06-05] MEDS: Mometasone/Formoterol 200/5 60 PUFF INH SCH ×2 (08:26→21:05)
[2022-06-05] MEDS: Acetaminophen 325 MG TAB PO PRN (17:01)
[2022-06-05] MEDS: Atorvastatin Calcium 40 MG TAB PO SCH (21:02)
[2022-06-05] MEDS: Nystatin Powder 15 GM BOT TOP PRN (21:05)
[2022-06-06] MEDS: Acetaminophen 325 MG TAB PO PRN ×2 (01:12→05:22)
[2022-06-06 06:00] LABS: #Basophils 0.1 thou/uL (0.0-0.2); #Eosinphils 0.1 thou/uL (0.0-0.7); #Lymphocytes 1.5 thou/uL (1.20-3.40); #Monocytes 0.7 thou/uL (0.11-0.59); %Basophils 1.5 % (0.0-1.0); %Eosinophils 2.2 % (0.0-10.0); %Monocytes 10.5 % (0.0-10.0); %Neutrophils 62.9 % (42.0-75.0); Hemoglobin 11.2 g/dL (12.0-16.0); Mean Corpuscular HGB CONC 30.4 g/dL (32.0-36.0); Mean Corpuscular Volume 85.7 fl (78.0-98.0); Mean Platelet Volume 9.1 fL (7.4-10.4); Platelet Count 278 10x3/uL (130-400); RBC Distribution Width 14.7 % (11.5-14.5); White Blood Cell (WBC) Count 6.3 10x3/uL (4.8-10.8)
[2022-06-06 06:10] LABS: ALT (SGPT) 15 U/L (8-55); AST (SGOT) 17 U/L (5-34); Albumin 3.7 g/dL (3.4-4.8); Alkaline Phosphatase 47 U/L (40-110); Anion Gap 12 mmol/L (10-20); BUN (Urea Nitrogen) 15 mg/dL (9.8-20.1); Bilirubin, Total 0.4 mg/dL (0.2-1.2); Calc. Creatinine Clearance 96 mL/min (70-130); Calcium 9.7 mg/dL (7.8-10.44); Carbon Dioxide 31 mmol/L (23-31); Chloride 103 mmol/L (98-107); Estimated GFR 96; Globulin 3.3 g/dL (2.4-3.5); Glucose 93 mg/dL (80-115); Potassium 3.8 mmol/L (3.5-5.1); Sodium 142 mmol/L (136-145)
[2022-06-06] MEDS: Cyanocobalamin (Vitamin B-12) 1,000 MCG TAB PO SCH (08:21)
[2022-06-06] MEDS: Saccharomyces boulardii 250 MG CAP PO SCH (08:21)
[2022-06-06] MEDS: diphenhydrAMINE 25 MG CAP PO SCH ×2 (08:21→21:24)
[2022-06-06] MEDS: ALPRAZolam 0.5 MG TAB PO SCH ×2 (08:21→21:23)
[2022-06-06] MEDS: Aspirin 325 MG TAB PO SCH (08:21)
[2022-06-06] MEDS: Clopidogrel Bisulfate 75 MG TAB PO SCH (08:21)
[2022-06-06] MEDS: Metoprolol Tartrate 25 MG TAB PO SCH ×2 (08:21→21:23)
[2022-06-06] MEDS: Sertraline 100 MG TAB PO SCH (08:22)
[2022-06-06] MEDS: Potassium Bicarbonate/Cit Ac 20 MEQ TAB PO SCH (08:22)
[2022-06-06] MEDS: Mometasone/Formoterol 200/5 60 PUFF INH SCH ×2 (08:23→21:25)
[2022-06-06] MEDS: Atorvastatin Calcium 40 MG TAB PO SCH (21:23)
[2022-06-07] MEDS: Acetaminophen 325 MG TAB PO PRN ×2 (04:36→14:52)
[2022-06-07] MEDS: Potassium Bicarbonate/Cit Ac 20 MEQ TAB PO SCH (08:36)
[2022-06-07] MEDS: ALPRAZolam 0.5 MG TAB PO SCH ×2 (08:37→21:08)
[2022-06-07] MEDS: diphenhydrAMINE 25 MG CAP PO SCH ×2 (08:37→21:08)
[2022-06-07] MEDS: Clopidogrel Bisulfate 75 MG TAB PO SCH (08:37)
[2022-06-07] MEDS: Aspirin 325 MG TAB PO SCH (08:37)
[2022-06-07] MEDS: Cyanocobalamin (Vitamin B-12) 1,000 MCG TAB PO SCH (08:38)
[2022-06-07] MEDS: Saccharomyces boulardii 250 MG CAP PO SCH (08:38)
[2022-06-07] MEDS: Metoprolol Tartrate 25 MG TAB PO SCH ×2 (08:38→21:08)
[2022-06-07] MEDS: Mometasone/Formoterol 200/5 60 PUFF INH SCH ×2 (08:40→21:10)
[2022-06-07] MEDS: Sertraline 100 MG TAB PO SCH (08:45)
[2022-06-07] MEDS: Triamcinolone 0.1% Cream 15 GM TUBE TOP PRN (08:53)
[2022-06-07] MEDS: Atorvastatin Calcium 40 MG TAB PO SCH (21:08)
[2022-06-08] MEDS: Acetaminophen 325 MG TAB PO PRN ×4 (03:26→21:23)
[2022-06-08] MEDS: Potassium Bicarbonate/Cit Ac 20 MEQ TAB PO SCH (08:48)
[2022-06-08] MEDS: ALPRAZolam 0.5 MG TAB PO SCH ×2 (08:49→21:18)
[2022-06-08] MEDS: Sertraline 100 MG TAB PO SCH (08:49)
[2022-06-08] MEDS: Clopidogrel Bisulfate 75 MG TAB PO SCH (08:49)
[2022-06-08] MEDS: Cyanocobalamin (Vitamin B-12) 1,000 MCG TAB PO SCH (08:49)
[2022-06-08] MEDS: Saccharomyces boulardii 250 MG CAP PO SCH (08:49)
[2022-06-08] MEDS: Aspirin 325 MG TAB PO SCH (08:49)
[2022-06-08] MEDS: diphenhydrAMINE 25 MG CAP PO SCH ×2 (08:49→21:18)
[2022-06-08] MEDS: Metoprolol Tartrate 25 MG TAB PO SCH ×2 (08:49→21:18)
[2022-06-08] MEDS: Mometasone/Formoterol 200/5 60 PUFF INH SCH ×2 (08:55→21:20)
[2022-06-08] MEDS: Atorvastatin Calcium 40 MG TAB PO SCH (21:18)
[2022-06-08] MEDS: Triamcinolone 0.1% Cream 15 GM TUBE TOP PRN (21:18)
[2022-06-09] MEDS: Acetaminophen 325 MG TAB PO PRN ×3 (06:31→20:47)
[2022-06-09] MEDS: Potassium Bicarbonate/Cit Ac 20 MEQ TAB PO SCH (08:16)
[2022-06-09] MEDS: ALPRAZolam 0.5 MG TAB PO SCH ×2 (08:16→20:48)
[2022-06-09] MEDS: Metoprolol Tartrate 25 MG TAB PO SCH ×2 (08:16→20:48)
[2022-06-09] MEDS: Aspirin 325 MG TAB PO SCH (08:16)
[2022-06-09] MEDS: Sertraline 100 MG TAB PO SCH (08:17)
[2022-06-09] MEDS: Clopidogrel Bisulfate 75 MG TAB PO SCH (08:17)
[2022-06-09] MEDS: Saccharomyces boulardii 250 MG CAP PO SCH (08:17)
[2022-06-09] MEDS: Cyanocobalamin (Vitamin B-12) 1,000 MCG TAB PO SCH (08:17)
[2022-06-09] MEDS: diphenhydrAMINE 25 MG CAP PO SCH ×2 (08:17→20:48)
[2022-06-09] MEDS: Triamcinolone 0.1% Cream 15 GM TUBE TOP PRN (08:19)
[2022-06-09] MEDS: Mometasone/Formoterol 200/5 60 PUFF INH SCH ×2 (08:20→20:49)
[2022-06-09] MEDS: Atorvastatin Calcium 40 MG TAB PO SCH (20:48)
[2022-06-10] MEDS: Acetaminophen 325 MG TAB PO PRN ×2 (06:01→14:17)
[2022-06-10] MEDS: Mometasone/Formoterol 200/5 60 PUFF INH SCH ×2 (09:30→20:51)
[2022-06-10] MEDS: Potassium Bicarbonate/Cit Ac 20 MEQ TAB PO SCH (09:54)
[2022-06-10] MEDS: Metoprolol Tartrate 25 MG TAB PO SCH ×2 (09:54→20:51)
[2022-06-10] MEDS: Clopidogrel Bisulfate 75 MG TAB PO SCH (09:54)
[2022-06-10] MEDS: Sertraline 100 MG TAB PO SCH (09:54)
[2022-06-10] MEDS: Saccharomyces boulardii 250 MG CAP PO SCH (09:54)
[2022-06-10] MEDS: Cyanocobalamin (Vitamin B-12) 1,000 MCG TAB PO SCH (09:54)
[2022-06-10] MEDS: ALPRAZolam 0.5 MG TAB PO SCH (09:54)
[2022-06-10] MEDS: Aspirin 325 MG TAB PO SCH (09:54)
[2022-06-10] MEDS: diphenhydrAMINE 25 MG CAP PO SCH ×2 (09:54→20:51)
[2022-06-10] MEDS: Atorvastatin Calcium 40 MG TAB PO SCH (20:51)
[2022-06-10] MEDS: ALPRAZolam 0.5 MG TAB PO PRN (21:04)
[2022-06-11] MEDS: Acetaminophen 325 MG TAB PO PRN ×3 (02:09→15:36)
[2022-06-11] MEDS: Cyanocobalamin (Vitamin B-12) 1,000 MCG TAB PO SCH (08:31)
[2022-06-11] MEDS: Potassium Bicarbonate/Cit Ac 20 MEQ TAB PO SCH (08:31)
[2022-06-11] MEDS: Saccharomyces boulardii 250 MG CAP PO SCH (08:31)
[2022-06-11] MEDS: Aspirin 325 MG TAB PO SCH (08:31)
[2022-06-11] MEDS: diphenhydrAMINE 25 MG CAP PO SCH ×2 (08:31→20:43)
[2022-06-11] MEDS: Clopidogrel Bisulfate 75 MG TAB PO SCH (08:32)
[2022-06-11] MEDS: Sertraline 100 MG TAB PO SCH (08:32)
[2022-06-11] MEDS: ALPRAZolam 0.5 MG TAB PO SCH (08:32)
[2022-06-11] MEDS: Mometasone/Formoterol 200/5 60 PUFF INH SCH ×2 (08:32→20:44)
[2022-06-11] MEDS: Metoprolol Tartrate 25 MG TAB PO SCH ×2 (08:32→20:43)
[2022-06-11] MEDS: ALPRAZolam 0.5 MG TAB PO PRN (20:43)
[2022-06-11] MEDS: Atorvastatin Calcium 40 MG TAB PO SCH (20:43)
[2022-06-11 23:13] LABS: Bilirubin Negative (Negative); Blood, Urine Moderate (Negative); Clarity Clear (Clear); Glucose, Urine (Dipstick) Negative (Negative); Ketone, Urine Negative (Negative); Leukocyte Large (Negative); Nitrite Negative (Negative); Protein, Urine (Dipstick) 30 mg/dL (Neg-Trace); RBC/HPF 0-3 HPF (0-3); Specific Gravity, Urine Less/Equal 1.005 (1.005-1.030); Urobilinogen 0.2 mg/dL (Less than 2); pH, Urine 5.5 (5.0-9.0)
[2022-06-11 23:14] LABS: Bacteria/HPF Rare-Few HPF (None Seen); WBC/HPF 21-50 HPF (0-3)
[2022-06-12 06:42] LABS: Prothrombin Time 13.6 sec (12.0-14.7)
[2022-06-12 06:43] LABS: PTT 27.2 sec (22.9-36.1)
[2022-06-12] MEDS: Saccharomyces boulardii 250 MG CAP PO SCH (08:46)
[2022-06-12] MEDS: Metoprolol Tartrate 25 MG TAB PO SCH ×2 (08:46→20:48)
[2022-06-12] MEDS: Aspirin 325 MG TAB PO SCH (08:46)
[2022-06-12] MEDS: ALPRAZolam 0.5 MG TAB PO SCH (08:47)
[2022-06-12] MEDS: Clopidogrel Bisulfate 75 MG TAB PO SCH (08:47)
[2022-06-12] MEDS: Potassium Bicarbonate/Cit Ac 20 MEQ TAB PO SCH (08:47)
[2022-06-12] MEDS: diphenhydrAMINE 25 MG CAP PO SCH ×2 (08:47→20:48)
[2022-06-12] MEDS: Sertraline 100 MG TAB PO SCH (08:47)
[2022-06-12] MEDS: Cyanocobalamin (Vitamin B-12) 1,000 MCG TAB PO SCH (08:47)
[2022-06-12] MEDS: Mometasone/Formoterol 200/5 60 PUFF INH SCH ×2 (08:51→20:48)
[2022-06-12] MEDS: Atorvastatin Calcium 40 MG TAB PO SCH (20:48)
[2022-06-12] MEDS: Acetaminophen 325 MG TAB PO PRN (20:51)
[2022-06-13] MEDS: Acetaminophen 325 MG TAB PO PRN ×2 (03:56→21:31)
[2022-06-13 05:16] LABS: ALT (SGPT) 12 U/L (8-55); AST (SGOT) 16 U/L (5-34); Albumin 3.6 g/dL (3.4-4.8); Alkaline Phosphatase 47 U/L (40-110); Anion Gap 15 mmol/L (10-20); BUN (Urea Nitrogen) 12 mg/dL (9.8-20.1); Bilirubin, Total 0.3 mg/dL (0.2-1.2); Calc. Creatinine Clearance 93 mL/min (70-130); Calcium 9.6 mg/dL (7.8-10.44); Carbon Dioxide 28 mmol/L (23-31); Chloride 104 mmol/L (98-107); Estimated GFR 95; Globulin 3.2 g/dL (2.4-3.5); Glucose 98 mg/dL (80-115); Potassium 4.2 mmol/L (3.5-5.1); Protein, Total 6.8 g/dL (5.8-8.1); Sodium 143 mmol/L (136-145)
[2022-06-13 05:25] LABS: #Basophils 0.1 thou/uL (0.0-0.2); #Eosinphils 0.1 thou/uL (0.0-0.7); #Lymphocytes 1.3 thou/uL (1.20-3.40); #Monocytes 0.6 thou/uL (0.11-0.59); #Neutrophils 3.8 thou/uL (1.40-6.50); %Basophils 1.1 % (0.0-1.0); %Eosinophils 2.2 % (0.0-10.0); %Lymphocytes 22.9 % (21.0-51.0); %Monocytes 10.1 % (0.0-10.0); %Neutrophils 63.8 % (42.0-75.0); Hemoglobin 11.3 g/dL (12.0-16.0); Mean Corpuscular HGB CONC 30.6 g/dL (32.0-36.0); Mean Corpuscular Hemoglobin 26.4 pg (27.0-31.0); Mean Corpuscular Volume 86.3 fl (78.0-98.0); Mean Platelet Volume 9.2 fL (7.4-10.4); Platelet Count 222 10x3/uL (130-400); RBC Distribution Width 14.6 % (11.5-14.5); Red Blood Cell (RBC) Count 4.29 mill/uL (4.20-5.40); White Blood Cell (WBC) Count 5.9 10x3/uL (4.8-10.8)
[2022-06-13] MEDS: diphenhydrAMINE 25 MG CAP PO SCH ×2 (08:08→21:32)
[2022-06-13] MEDS: Sertraline 100 MG TAB PO SCH (08:08)
[2022-06-13] MEDS: Aspirin 325 MG TAB PO SCH (08:08)
[2022-06-13] MEDS: Saccharomyces boulardii 250 MG CAP PO SCH (08:08)
[2022-06-13] MEDS: Clopidogrel Bisulfate 75 MG TAB PO SCH (08:08)
[2022-06-13] MEDS: Potassium Bicarbonate/Cit Ac 20 MEQ TAB PO SCH (08:08)
[2022-06-13] MEDS: ALPRAZolam 0.5 MG TAB PO SCH (08:09)
[2022-06-13] MEDS: Mometasone/Formoterol 200/5 60 PUFF INH SCH ×2 (08:09→21:37)
[2022-06-13] MEDS: Cyanocobalamin (Vitamin B-12) 1,000 MCG TAB PO SCH (08:09)
[2022-06-13] MEDS: Metoprolol Tartrate 25 MG TAB PO SCH ×2 (08:09→21:32)
[2022-06-13] MEDS: Atorvastatin Calcium 40 MG TAB PO SCH (21:32)
[2022-06-14] MEDS: Acetaminophen 325 MG TAB PO PRN ×3 (04:26→20:37)
[2022-06-14] MEDS: Mometasone/Formoterol 200/5 60 PUFF INH SCH ×2 (09:05→20:35)
[2022-06-14] MEDS: Clopidogrel Bisulfate 75 MG TAB PO SCH (09:06)
[2022-06-14] MEDS: Cyanocobalamin (Vitamin B-12) 1,000 MCG TAB PO SCH (09:06)
[2022-06-14] MEDS: Aspirin 325 MG TAB PO SCH (09:06)
[2022-06-14] MEDS: Metoprolol Tartrate 25 MG TAB PO SCH ×2 (09:06→20:37)
[2022-06-14] MEDS: ALPRAZolam 0.5 MG TAB PO SCH (09:06)
[2022-06-14] MEDS: diphenhydrAMINE 25 MG CAP PO SCH ×2 (09:06→20:37)
[2022-06-14] MEDS: Sertraline 100 MG TAB PO SCH (09:06)
[2022-06-14] MEDS: Potassium Bicarbonate/Cit Ac 20 MEQ TAB PO SCH (09:06)
[2022-06-14] MEDS: Saccharomyces boulardii 250 MG CAP PO SCH (09:07)
[2022-06-14] MEDS: Atorvastatin Calcium 40 MG TAB PO SCH (20:37)
[2022-06-14] MEDS: ALPRAZolam 0.5 MG TAB PO PRN (20:49)
[2022-06-15] MEDS: Potassium Bicarbonate/Cit Ac 20 MEQ TAB PO SCH (08:05)
[2022-06-15] MEDS: ALPRAZolam 0.5 MG TAB PO SCH (08:05)
[2022-06-15] MEDS: Cyanocobalamin (Vitamin B-12) 1,000 MCG TAB PO SCH (08:05)
[2022-06-15] MEDS: Sertraline 100 MG TAB PO SCH (08:06)
[2022-06-15] MEDS: Metoprolol Tartrate 25 MG TAB PO SCH ×2 (08:06→21:09)
[2022-06-15] MEDS: Saccharomyces boulardii 250 MG CAP PO SCH (08:06)
[2022-06-15] MEDS: diphenhydrAMINE 25 MG CAP PO SCH ×2 (08:06→21:09)
[2022-06-15] MEDS: Mometasone/Formoterol 200/5 60 PUFF INH SCH ×2 (08:07→21:07)
[2022-06-15] MEDS: Acetaminophen 325 MG TAB PO PRN ×3 (13:35→21:08)
[2022-06-15] MEDS: Atorvastatin Calcium 40 MG TAB PO SCH (21:09)
[2022-06-15] MEDS: ALPRAZolam 0.5 MG TAB PO PRN (21:09)
[2022-06-16] MEDS: Acetaminophen 325 MG TAB PO PRN ×3 (05:29→21:35)
[2022-06-16] MEDS: Sertraline 100 MG TAB PO SCH (08:12)
[2022-06-16] MEDS: diphenhydrAMINE 25 MG CAP PO SCH ×2 (08:12→21:37)
[2022-06-16] MEDS: Metoprolol Tartrate 25 MG TAB PO SCH ×2 (08:12→21:37)
[2022-06-16] MEDS: Saccharomyces boulardii 250 MG CAP PO SCH (08:12)
[2022-06-16] MEDS: Potassium Bicarbonate/Cit Ac 20 MEQ TAB PO SCH (08:12)
[2022-06-16] MEDS: Cyanocobalamin (Vitamin B-12) 1,000 MCG TAB PO SCH (08:12)
[2022-06-16] MEDS: ALPRAZolam 0.5 MG TAB PO SCH (08:13)
[2022-06-16] MEDS: Mometasone/Formoterol 200/5 60 PUFF INH SCH ×2 (08:14→21:37)
[2022-06-16] MEDS: Atorvastatin Calcium 40 MG TAB PO SCH (21:37)
[2022-06-16] MEDS: ALPRAZolam 0.5 MG TAB PO PRN (21:37)
[2022-06-17] MEDS: Sertraline 100 MG TAB PO SCH (10:16)
[2022-06-17] MEDS: diphenhydrAMINE 25 MG CAP PO SCH ×2 (10:17→21:08)
[2022-06-17] MEDS: ALPRAZolam 0.5 MG TAB PO SCH (10:17)
[2022-06-17] MEDS: Metoprolol Tartrate 25 MG TAB PO SCH ×2 (10:17→21:08)
[2022-06-17] MEDS: Potassium Bicarbonate/Cit Ac 20 MEQ TAB PO SCH (10:18)
[2022-06-17] MEDS: Cyanocobalamin (Vitamin B-12) 1,000 MCG TAB PO SCH (10:18)
[2022-06-17] MEDS: Mometasone/Formoterol 200/5 60 PUFF INH SCH ×2 (10:19→21:08)
[2022-06-17] MEDS: Saccharomyces boulardii 250 MG CAP PO SCH (10:21)
[2022-06-17] MEDS: Acetaminophen 325 MG TAB PO PRN ×2 (14:36→22:44)
[2022-06-17] MEDS: Atorvastatin Calcium 40 MG TAB PO SCH (21:08)
[2022-06-17] MEDS: ALPRAZolam 0.5 MG TAB PO PRN (21:13)
[2022-06-18] MEDS: Acetaminophen 325 MG TAB PO PRN ×2 (08:17→15:35)
[2022-06-18] MEDS: Sertraline 100 MG TAB PO SCH (08:18)
[2022-06-18] MEDS: Metoprolol Tartrate 25 MG TAB PO SCH ×2 (08:19→21:14)
[2022-06-18] MEDS: Saccharomyces boulardii 250 MG CAP PO SCH (08:19)
[2022-06-18] MEDS: ALPRAZolam 0.5 MG TAB PO SCH (08:19)
[2022-06-18] MEDS: diphenhydrAMINE 25 MG CAP PO SCH ×2 (08:19→21:14)
[2022-06-18] MEDS: Cyanocobalamin (Vitamin B-12) 1,000 MCG TAB PO SCH (08:19)
[2022-06-18] MEDS: Potassium Bicarbonate/Cit Ac 20 MEQ TAB PO SCH (08:19)
[2022-06-18] MEDS: Mometasone/Formoterol 200/5 60 PUFF INH SCH ×2 (08:20→21:15)
[2022-06-18] MEDS: Atorvastatin Calcium 40 MG TAB PO SCH (21:15)
[2022-06-18] MEDS: ALPRAZolam 0.5 MG TAB PO PRN (21:15)
[2022-06-19] MEDS: Acetaminophen 325 MG TAB PO PRN ×2 (01:57→15:28)
[2022-06-19] MEDS: Potassium Bicarbonate/Cit Ac 20 MEQ TAB PO SCH (08:25)
[2022-06-19] MEDS: ALPRAZolam 0.5 MG TAB PO SCH (08:25)
[2022-06-19] MEDS: Metoprolol Tartrate 25 MG TAB PO SCH ×2 (08:26→20:33)
[2022-06-19] MEDS: Sertraline 100 MG TAB PO SCH (08:26)
[2022-06-19] MEDS: Saccharomyces boulardii 250 MG CAP PO SCH (08:26)
[2022-06-19] MEDS: Cyanocobalamin (Vitamin B-12) 1,000 MCG TAB PO SCH (08:26)
[2022-06-19] MEDS: diphenhydrAMINE 25 MG CAP PO SCH ×2 (08:26→20:33)
[2022-06-19] MEDS: Mometasone/Formoterol 200/5 60 PUFF INH SCH ×2 (08:27→21:18)
[2022-06-19] MEDS: Atorvastatin Calcium 40 MG TAB PO SCH (20:33)
[2022-06-19] MEDS: ALPRAZolam 0.5 MG TAB PO PRN (20:41)
[2022-06-20 05:59] LABS: Hemoglobin 10.5 g/dL (12.0-16.0); Mean Corpuscular HGB CONC 30.1 g/dL (32.0-36.0); Mean Corpuscular Hemoglobin 25.6 pg (27.0-31.0); Mean Corpuscular Volume 85.3 fl (78.0-98.0); Mean Platelet Volume 9.2 fL (7.4-10.4); Platelet Count 211 10x3/uL (130-400); RBC Distribution Width 14.9 % (11.5-14.5); Red Blood Cell (RBC) Count 4.08 mill/uL (4.20-5.40); White Blood Cell (WBC) Count 5.8 10x3/uL (4.8-10.8)
[2022-06-20] MEDS: Acetaminophen 325 MG TAB PO PRN ×2 (06:00→14:55)
[2022-06-20 06:11] LABS: ALT (SGPT) 10 U/L (8-55); AST (SGOT) 12 U/L (5-34); Albumin 3.3 g/dL (3.4-4.8); Alkaline Phosphatase 47 U/L (40-110); Anion Gap 14 mmol/L (10-20); BUN (Urea Nitrogen) 13 mg/dL (9.8-20.1); Bilirubin, Total 0.3 mg/dL (0.2-1.2); Calc. Creatinine Clearance 98 mL/min (70-130); Carbon Dioxide 28 mmol/L (23-31); Chloride 106 mmol/L (98-107); Estimated GFR 96; Globulin 3.2 g/dL (2.4-3.5); Glucose 82 mg/dL (80-115); Potassium 3.9 mmol/L (3.5-5.1); Protein, Total 6.5 g/dL (5.8-8.1); Sodium 144 mmol/L (136-145)
[2022-06-20 06:37] LABS: Eosinophils 2 % (0-10); Lymphocytes 22 % (21-51); MDiff Complete? YES; Monocytes 14 % (0-10); Neutrophil 61 % (42-75)
[2022-06-20] MEDS: Potassium Bicarbonate/Cit Ac 20 MEQ TAB PO SCH (08:40)
[2022-06-20] MEDS: Mometasone/Formoterol 200/5 60 PUFF INH SCH ×2 (08:41→21:33)
[2022-06-20] MEDS: Metoprolol Tartrate 25 MG TAB PO SCH ×2 (08:41→21:32)
[2022-06-20] MEDS: diphenhydrAMINE 25 MG CAP PO SCH ×2 (08:41→21:33)
[2022-06-20] MEDS: Saccharomyces boulardii 250 MG CAP PO SCH (08:41)
[2022-06-20] MEDS: ALPRAZolam 0.5 MG TAB PO SCH (08:41)
[2022-06-20] MEDS: Cyanocobalamin (Vitamin B-12) 1,000 MCG TAB PO SCH (08:41)
[2022-06-20] MEDS: Sertraline 100 MG TAB PO SCH (08:41)
[2022-06-20] MEDS: Triamcinolone 0.1% Cream 15 GM TUBE TOP PRN (09:46)
[2022-06-20] MEDS: Atorvastatin Calcium 40 MG TAB PO SCH (21:33)
[2022-06-20] MEDS: ALPRAZolam 0.5 MG TAB PO PRN (21:42)
[2022-06-21] MEDS: Acetaminophen 325 MG TAB PO PRN ×2 (05:37→16:07)
[2022-06-21] MEDS: Cyanocobalamin (Vitamin B-12) 1,000 MCG TAB PO SCH (08:08)
[2022-06-21] MEDS: ALPRAZolam 0.5 MG TAB PO SCH (08:08)
[2022-06-21] MEDS: Mometasone/Formoterol 200/5 60 PUFF INH SCH ×2 (08:08→21:13)
[2022-06-21] MEDS: Potassium Bicarbonate/Cit Ac 20 MEQ TAB PO SCH (08:08)
[2022-06-21] MEDS: Sertraline 100 MG TAB PO SCH (08:08)
[2022-06-21] MEDS: Metoprolol Tartrate 25 MG TAB PO SCH ×2 (08:08→21:11)
[2022-06-21] MEDS: diphenhydrAMINE 25 MG CAP PO SCH ×2 (08:08→21:11)
[2022-06-21] MEDS: Saccharomyces boulardii 250 MG CAP PO SCH (08:08)
[2022-06-21] MEDS: Atorvastatin Calcium 40 MG TAB PO SCH (21:11)
[2022-06-21] MEDS: ALPRAZolam 0.5 MG TAB PO PRN (21:11)
[2022-06-22] MEDS: Acetaminophen 325 MG TAB PO PRN ×3 (03:56→20:51)
[2022-06-22] MEDS: Potassium Bicarbonate/Cit Ac 20 MEQ TAB PO SCH (08:39)
[2022-06-22] MEDS: Sertraline 100 MG TAB PO SCH (08:39)
[2022-06-22] MEDS: ALPRAZolam 0.5 MG TAB PO SCH (08:40)
[2022-06-22] MEDS: diphenhydrAMINE 25 MG CAP PO SCH ×2 (08:41→20:51)
[2022-06-22] MEDS: Saccharomyces boulardii 250 MG CAP PO SCH (08:41)
[2022-06-22] MEDS: Metoprolol Tartrate 25 MG TAB PO SCH ×2 (08:41→20:51)
[2022-06-22] MEDS: Cyanocobalamin (Vitamin B-12) 1,000 MCG TAB PO SCH (08:41)
[2022-06-22] MEDS: Mometasone/Formoterol 200/5 60 PUFF INH SCH ×2 (08:42→20:55)
[2022-06-22] MEDS: Atorvastatin Calcium 40 MG TAB PO SCH (20:51)
[2022-06-22] MEDS: ALPRAZolam 0.5 MG TAB PO PRN (20:51)
[2022-06-23] MEDS: Metoprolol Tartrate 25 MG TAB PO SCH ×2 (07:56→21:23)
[2022-06-23] MEDS: Potassium Bicarbonate/Cit Ac 20 MEQ TAB PO SCH (16:31)
[2022-06-23] MEDS: Saccharomyces boulardii 250 MG CAP PO SCH (16:32)
[2022-06-23] MEDS: Mometasone/Formoterol 200/5 60 PUFF INH SCH ×2 (16:33→21:23)
[2022-06-23] MEDS: ALPRAZolam 0.5 MG TAB PO SCH (16:33)
[2022-06-23] MEDS: Cyanocobalamin (Vitamin B-12) 1,000 MCG TAB PO SCH (16:33)
[2022-06-23] MEDS: diphenhydrAMINE 25 MG CAP PO SCH ×2 (16:34→21:23)
[2022-06-23] MEDS: Sertraline 100 MG TAB PO SCH (19:47)
[2022-06-23] MEDS: Atorvastatin Calcium 40 MG TAB PO SCH (21:23)
[2022-06-23] MEDS: ALPRAZolam 0.5 MG TAB PO PRN (21:23)
[2022-06-23] MEDS: Acetaminophen 325 MG TAB PO PRN (23:42)
[2022-06-24] MEDS: Acetaminophen 325 MG TAB PO PRN (05:00)
[2022-06-24 06:12] VITALS: BP 113/77; TEMP 98
[2022-06-24] MEDS: Potassium Bicarbonate/Cit Ac 20 MEQ TAB PO SCH (08:49)
[2022-06-24] MEDS ORDERED: Aspirin 325 MG TAB PO SCH (09:00)
[2022-06-24] MEDS ORDERED: Clopidogrel Bisulfate 75 MG TAB PO SCH (09:00)
[2022-06-24] MEDS: Cyanocobalamin (Vitamin B-12) 1,000 MCG TAB PO SCH (09:09)
[2022-06-24] MEDS: Sertraline 100 MG TAB PO SCH (09:10)
[2022-06-24] MEDS: diphenhydrAMINE 25 MG CAP PO SCH (09:10)
[2022-06-24] MEDS: Saccharomyces boulardii 250 MG CAP PO SCH (09:10)
[2022-06-24] MEDS: ALPRAZolam 0.5 MG TAB PO SCH (09:11)
[2022-06-24] MEDS: Metoprolol Tartrate 25 MG TAB PO SCH (09:11)
[2022-06-24] MEDS: Mometasone/Formoterol 200/5 60 PUFF INH SCH (09:12)
[2022-06-28] MEDS ORDERED: Clopidogrel Bisulfate 75 MG TAB PO SCH (09:00)
[2022-06-28] MEDS ORDERED: Aspirin 325 MG TAB PO SCH (09:00)
== END 2022-06-24 13:00 | disposition home or self-care (01) | DRG 690 ==
LOC: BURMED 20:30
PROVIDERS: ADMIT Family Medicine; ATTEND Family Medicine
DX: N39.0 Urinary tract infection, site not specified (principal); J44.9 Chronic obstructive pulmonary disease, unspecified; N20.0 Calculus of kidney; B96.5 Pseudomonas (aeruginosa) (mallei) (pseudomallei) as the cause of diseases classified elsewhere
CPT/HCPCS: 36415; 80053; 81001; 85025; 85610; 85730; 87086; 94664; J0695; J3490; J7611

== ENCOUNTER 2023-03-16 14:02 | Outpatient (CLI) | payer MEDICARE | END 2023-03-16 14:03 | disposition home or self-care (01) | LOC: BURCT 14:02 | PROVIDERS: ATTEND Family Medicine | DX: N20.0 Calculus of kidney (principal); N28.89 Other specified disorders of kidney and ureter | CPT/HCPCS: 74176 ==

== ENCOUNTER 2023-04-25 17:54 | Emergency (ER) | payer MEDICARE ==
[2023-04-25] MEDS ORDERED: Ipratropium/Albuterol 3 ML NEB ONE (18:13)
[2023-04-25 18:56] LABS: #Basophils 0.3 thou/uL (0.0-0.2); #Lymphocytes 1.2 thou/uL (1.20-3.40); #Neutrophils 7.7 thou/uL (1.40-6.50); %Basophils 2.5 % (0.0-1.0); %Eosinophils 0.1 % (0.0-10.0); %Lymphocytes 11.5 % (21.0-51.0); %Monocytes 9.9 % (0.0-10.0); Hematocrit 32.3 % (36.0-47.0); Hemoglobin 9.9 g/dL (12.0-16.0); Mean Corpuscular HGB CONC 30.7 g/dL (32.0-36.0); Mean Corpuscular Hemoglobin 25.4 pg (27.0-31.0); Mean Corpuscular Volume 82.7 fl (78.0-98.0); Mean Platelet Volume 6.9 fL (7.4-10.4); Platelet Count 331 10x3/uL (130-400); RBC Distribution Width 14.7 % (11.5-14.5); Red Blood Cell (RBC) Count 3.91 mill/uL (4.20-5.40); White Blood Cell (WBC) Count 10.1 10x3/uL (4.8-10.8)
[2023-04-25 19:15] LABS: ALT (SGPT) 8 U/L (8-55); AST (SGOT) 14 U/L (5-34); Albumin 3.4 g/dL (3.4-4.8); Alkaline Phosphatase 51 U/L (40-110); Anion Gap 17 mmol/L (10-20); BUN (Urea Nitrogen) 19 mg/dL (9.8-20.1); Bilirubin, Total 0.3 mg/dL (0.2-1.2); Calc. Creatinine Clearance 0 mL/min (70-130); Calcium 9.4 mg/dL (7.8-10.44); Carbon Dioxide 33 mmol/L (23-31); Chloride 96 mmol/L (98-107); Estimated GFR 88; Globulin 3.2 g/dL (2.4-3.5); Glucose 85 mg/dL (80-115); Potassium 3.8 mmol/L (3.5-5.1); Protein, Total 6.6 g/dL (5.8-8.1); Sodium 142 mmol/L (136-145)
[2023-04-25 19:16] LABS: Troponin I Less than 0.010 ng/mL (< 0.028)
[2023-04-25 19:39] LABS: Influenza A by NAA Not Detected (NotDetected); Influenza B by NAA Not Detected (NotDetected); RSV by NAA Not Detected (NotDetected); SARS-CoV-2 NAA Rapid Test Not Detected (NotDetected)
[2023-04-25] MEDS ORDERED: predniSONE 20 MG TAB ONE (19:59)
== END 2023-04-25 20:08 | disposition home or self-care (01) ==
LOC: BURERS 17:54
DX: J44.1 Chronic obstructive pulmonary disease with (acute) exacerbation (principal); I10 Essential (primary) hypertension; Z87.891 Personal history of nicotine dependence
CPT/HCPCS: 0241U; 71046; 80053; 83880; 84484; 85025; 93005; 94760; 36415; J7512; J7620

== ENCOUNTER 2024-12-31 11:42 | Inpatient (IN) | payer MEDICARE ==
[2024-12-31] MEDS: Acetaminophen 325 MG TAB PO PRN (22:47)
[2024-12-31] MEDS: Mirtazapine 15 MG TAB PO SCH (22:48)
[2024-12-31] MEDS: levETIRAcetam 500 MG TAB PO SCH (22:48)
[2025-01-01 05:23] LABS: ALT (SGPT) 46 U/L (Less than 34); AST (SGOT) 50 U/L (11-34); Albumin 2.3 g/dL (3.1-4.5); Alkaline Phosphatase 35 U/L (40-110); Anion Gap 14 mmol/L (10-20); BUN (Urea Nitrogen) 25 mg/dL (9.8-20.1); Bilirubin, Total 0.1 mg/dL (0.3-1.2); Calc. Creatinine Clearance 84 mL/min (70-130); Calcium 8.2 mg/dL (7.8-10.44); Carbon Dioxide 29 mmol/L (23-31); Chloride 102 mmol/L (98-107); Globulin 3.9 g/dL (2.4-3.5); Glucose 84 mg/dL (80-115); Potassium 4.3 mmol/L (3.5-5.1); Sodium 141 mmol/L (136-145)
[2025-01-01 05:53] LABS: #Basophils 0.3 thou/uL (0.0-0.2); #Eosinophils 0.0 thou/uL (0.0-0.7); #Lymphocytes 1.3 thou/uL (1.20-3.40); #Monocytes 0.9 thou/uL (0.11-0.59); #Neutrophils 9.8 thou/uL (1.40-6.50); %Basophils 2.5 % (0.0-1.0); %Eosinophils 0.2 % (0.0-10.0); %Lymphocytes 10.6 % (21.0-51.0); %Monocytes 7.3 % (0.0-10.0); %Neutrophils 79.5 % (42.0-75.0); Hematocrit 31.8 % (36.0-47.0); Hemoglobin 10.1 g/dL (12.0-16.0); Mean Corpuscular Hemoglobin 23.6 pg (27.0-31.0); Mean Corpuscular Volume 74.4 fl (78.0-98.0); Platelet Count 399 10x3/uL (130-400); Red Blood Cell (RBC) Count 4.28 mill/uL (4.20-5.40); White Blood Cell (WBC) Count 12.3 10x3/uL (4.8-10.8)
[2025-01-01 06:06] VITALS: BMI 26.2
[2025-01-01 06:47] LABS: Anisocytosis SLIGHT = 6-15 cells (100X) (0-5/hpf); MDiff Complete? YES; Microcytosis SLIGHT = 6-15 cells (100X) (0-5/hpf); Ovalocytes SLIGHT = 2-5 cells (100X) (0-1/hpf); Poikilocytosis SLIGHT = 6-15 cells (100X) (0-5/hpf)
[2025-01-01] MEDS: Aspirin 81 mg Enteric Coated Tablet PO SCH (09:16)
[2025-01-01] MEDS: Ferrous Sulfate 325 MG TAB PO SCH (09:16)
[2025-01-01] MEDS: Cefdinir 300 MG CAP PO SCH (09:17)
[2025-01-01] MEDS: Folic Acid 1 MG TAB PO SCH (09:17)
[2025-01-01] MEDS: Cyanocobalamin (Vitamin B-12) 1,000 MCG TAB PO SCH (09:17)
[2025-01-01] MEDS: Enoxaparin 40 MG (0.4 mL) SYRINGE SC SCH (09:17)
[2025-01-01] MEDS: levETIRAcetam 500 MG TAB PO SCH (09:18)
[2025-01-01] MEDS: Pantoprazole 40 MG DR.TAB PO SCH (09:19)
[2025-01-01] MEDS: Sertraline 100 MG TAB PO SCH (09:19)
[2025-01-01] MEDS: FLU (Fluad Triv) 25-26 (65UP)PF 45 MCG/0.5 ML Syringe IM ONE (13:08)
[2025-01-01] MEDS: predniSONE 20 MG TAB PO SCH (15:44)
[2025-01-01] MEDS: Mirtazapine 15 MG TAB PO SCH (20:09)
[2025-01-02] MEDS: predniSONE 20 MG TAB PO SCH (08:43)
[2025-01-02 14:46] VITALS: BMI 26.2
[2025-01-03] MEDS: HYDROcodone/Acetaminophen 5/325 mg Tablet PO PRN (06:05)
[2025-01-10 06:27] VITALS: BP 124/77; TEMP 98.4
== END 2025-01-10 13:31 | disposition home or self-care (01) | DRG 689 ==
LOC: BURMED 20:32
PROVIDERS: ADMIT Family Medicine; ATTEND Family Medicine
DX: N10 Acute pyelonephritis (principal); J96.21 Acute and chronic respiratory failure with hypoxia; I50.32 Chronic diastolic (congestive) heart failure; F15.23 Other stimulant dependence with withdrawal; R53.1 Weakness; I11.0 Hypertensive heart disease with heart failure; F41.9 Anxiety disorder, unspecified; F32.A Depression, unspecified; I10 Essential (primary) hypertension; G40.909 Epilepsy, unspecified, not intractable, without status epilepticus; Z86.73 Personal history of transient ischemic attack (TIA), and cerebral infarction without residual deficits; Z99.81 Dependence on supplemental oxygen; Z91.81 History of falling; Z87.440 Personal history of urinary (tract) infections; Z98.890 Other specified postprocedural states; Z90.710 Acquired absence of both cervix and uterus; Z93.6 Other artificial openings of urinary tract status; Z23 Encounter for immunization
CPT/HCPCS: 36415; 71045; 80053; 85025; 94640; J1650; J7512; J7626